=== PATIENT | female | born 1950 | race Caucasian/White ===

== ENCOUNTER 2024-11-13 16:24 | Emergency (ER) | payer MEDICARE, MEDICAID, SELFPAY ==
[2024-11-13] VITALS (19 sets, daily range): BP systolic 107–130; BP diastolic 42–98; PULSE 70–108; RESP 11–31; TEMP 36.6; O2SAT 97–100
--- NOTE | 2024-11-13 16:45 | RT.EKG_ITS ---
APPROVED REPORT Exam: Resting ECG Reason for Exam: weakness Patient Location: E HR:93 bpm ECG Measurements Heart Rate 93 AXIS AR 165 P 51 QRSd 88 QRS 24 QT 355 T 64 QTc 441 Conclusion Sinus rhythm at a rate of 93 without acute ischemic change
--- NOTE | 2024-11-13 17:09 | W.ED.GENAD ---
Discharge Plan Disposition Patient Disposition: Home Condition: Stable Discharge Details Clinical Impression: Hypokalemia Primary Care Provider: Unknown,Unknown ED Provider: Urszula Castellano Home Meds and New Rx's Prescriptions: New potassium chloride 20 mEq packet 20 meq PO DAILY Qty: 3 0RF No Action hydrocodone-acetaminophen 10-300 mg tablet 1 tab PO Q6H PRN multivitamin [Daily Multi-Vitamin] Tablet 1 tab PO DAILY cyanocobalamin (vitamin B-12) 1,000 mcg capsule 1,000 mcg PO DAILY calcium carbonate [Calcium 500] 500 mg calcium (1,250 mg) tablet,chewable 500 mg PO DAILY cholecalciferol (vitamin D3) 25 mcg (1,000 unit) tablet 1,000 unit PO DAILY pantoprazole 40 mg tablet,delayed release (DR/EC) 40 mg PO DAILY Discharge Instructions Instructions: Hypokalemia, High Potassium Diet Additional Instructions: Please follow-up with your primary care doctor. In the meantime if you do get worse or develop any new or concerning symptoms please return to the emergency department immediately for reevaluation. HPI General Date/Time Provider Initiated Documentation: 11/13/24 16:57. History of Present Illness 74 year old F presents to the emergency department with the chief complaint of Review of systems are negative except as mentioned., HPI Narrative: The patient is a 74-year-old female with a history of chronic low back pain on chronic narcotics who comes the emergency department for generalized weakness. Reports that she has been feeling weak over the past 2 weeks. Reports she feels weak all over but worse around her legs. Denies any new or worsening back pain. Denies any loss of urine or bowel control. Denies any numbness, tingling sensation that is different from her normal. Denies urinary symptoms. Denies any new or worsening cough. Denies any new or worsening chest pain or shortness of breath. Denies fevers or chills. Reports that she has an appetite and she wants to eat however she feels very full very quickly but this has been ongoing for the past few years. Reports she has not had any vomiting. Reports she has not had diarrhea. Denies any rashes or skin changes or any known insect bite. Reports that coincidentally during all this her landlord started putting up transfer rats but as far she is concerned she has not been bitten by one. Reports the last time she had something like this happen was when her electrolytes were low. She is wondering if this is what is happening again. Related Data Home Medications ?Medication ?Instructions ?Recorded ?Confirmed calcium carbonate (Calcium 500) 500 mg PO DAILY 11/13/24 11/13/24 cholecalciferol (vitamin D3) 25 1,000 unit PO DAILY 11/13/24 11/13/24 mcg (1,000 unit) tablet cyanocobalamin (vitamin B-12) 1,000 mcg PO DAILY 11/13/24 11/13/24 1,000 mcg capsule hydrocodone 10 mg-acetaminophen 1 tab PO Q6H PRN 11/13/24 11/13/24 300 mg tablet multivitamin (Daily Multi-Vitamin 1 tab PO DAILY 11/13/24 11/13/24 tablet) pantoprazole 40 mg tablet,delayed 40 mg PO DAILY 11/13/24 11/13/24 release potassium chloride 20 mEq oral 20 meq PO DAILY #3 ea 11/13/24 packet Previous Rx's ?Medication ?Instructions ?Recorded potassium chloride 20 mEq oral 20 meq PO DAILY #3 ea 11/13/24 packet Allergies Allergy/AdvReac Type Severity Reaction Status Date / Time omeprazole Allergy Severe Dizziness/L Verified 11/13/24 16:36 ighthead procaine (From Novocain) Allergy Severe Anaphylaxis Verified 11/13/24 16:36 morphine AdvReac Intermediate Psychosis Verified 11/13/24 16:36 General Stated Complaint: GenMedical VICTOR HUGO: 3 Exam Narrative Exam Narrative: General appearance: The patient is alert, has no immediate need for airway protection and no signs of toxicity. HEENT: Pupils are round, equal and reactive. Oral mucosal membranes are moist. Neck: No midline C-spine tenderness is noted to palpation. Respiratory: There are no retractions. Patient has coarse lung sounds bilaterally. Cardiovascular: Regular in rate and rhythm. Radial pulses are intact and equal. Gastrointestinal: The abdomen is soft and nondistended with normal bowel sounds. The patient has suprapubic tenderness to palpation without rebound tenderness, guarding or rigidity. Neurological: The patient is alert, awake and oriented x 3. Musculoskeletal strength is intact and equal to bilateral upper and lower extremities. Sensation is intact and equal to bilateral upper and lower extremities. Speech is clear. No facial asymmetry is appreciated. Cranial nerves II to XII motor function are intact and equal. No pronator drift noted. NIH stroke scale score is 0 at 1700. No truncal ataxia is noted. HINTS testing is within normal limits. Skin: Warm and dry. Back: The patient has midline lumbar spine tenderness on exam which again she reports is baseline and unchanged for her. She has paraspinal tenderness also which she also reports is baseline for her. Extremities: No lower extremity edema or calf tenderness is noted to palpation bilaterally. The patient has equal dorsalis pedis pulses. Motor function to lower extremities are normal and symmetric bilaterally. Patient has normal sensation to all dermatomes to bilateral lower extremities. Patient has negative straight leg raise to 70 degrees bilaterally. The patient has intact and equal strength to bilateral thigh abduction, knee extension, ankle dorsiflexion, toes pointing up, knee flexion, toe plantarflexion. Course Vital Signs Vital signs: Vital Signs Temperature 36.6 C 11/13/24 16:27 Pulse 108 H 11/13/24 16:27 Respiratory Rate 18 11/13/24 16:27 Blood Pressure 130/80 11/13/24 16:27 Pulse Oximetry 98 11/13/24 16:27 Temperature 36.6 C 11/13/24 16:27 Pulse 108 H 11/13/24 16:27 Respiratory Rate 18 11/13/24 16:27 Blood Pressure 130/80 11/13/24 16:27 Pulse Oximetry 98 11/13/24 16:27 Oxygen Delivery Method Room Air 11/13/24 16:27 Oxygen Flow Rate 0 11/13/24 16:27 Pain Level 0 11/13/24 16:27 Medical Decision Making I told the patient of plan for blood work, urinalysis and EKG. She has no focal deficit on exam which is reassuring. The patient's blood work is back. She is anemic but not critically anemic. Her chemistries are resulted and I found her potassium to be low. Renal function is benign and magnesium is within normal limits. I told the patient of plan for oral dose of potassium now and IV dose as well. The patient declined IV potassium. Since she has no EKG changes I am not insisting upon it. Urinalysis is resulted and this is negative for infectious process. After receiving oral potassium the patient reports she feels back to baseline and ready to go home. She will therefore be discharged shortly. I sent a prescription for more potassium for the next few days to her preferred pharmacy. She is encouraged to increase potassium intake at home and to follow-up with her primary care doctor as well however I told her in the meantime if she does get worse or develop any new or concerning symptoms to return to the emergency department for reevaluation. ECG Data Attestation: I personally reviewed and interpreted this ECG (s) as follows: (Sinus rhythm at a rate of 93 without acute ischemic change) PFSH All Active Problems (Updated 11/13/24 @ 19:16 by Urszula Castellano DO) Hypokalemia (Acute) Social History Smoking/Tobacco Use Status: Current every day Tobacco Type: cigarettes Smoking risk assessment performed?: Yes Alcohol Intake: current Alcohol Intake frequency: 3 or more drinks per day Drug use: Daily Substance use type: marijuana Housing: apartment Do you feel safe at home: Yes Do you feel safe in your relationship?: Yes
[2024-11-13 17:56] LABS: Abs Immature Grans 0.05 10^3/uL (0.0-0.06); Absolute Basophil Count 0.05 10^3/uL (0.0-0.2); Absolute Eosinophil Count 0.19 10^3/uL (0.0-0.7); Absolute Lymphocyte Count 0.99 10^3/uL (1.2-3.4); Absolute Monocyte Count 0.73 10^3/uL (0.1-0.8); Absolute Neutrophil Count 5.64 10^3/uL (1.2-6.7); Basophils % 0.7 %; Eosinophils % 2.5 %; HCT 33.4 % (36.0-46.0); HGB 10.7 g/dL (11.2-15.7); Immature Grans % 0.7 %; Lymphocytes % 12.9 %; MCH 29.6 pg (27.0-33.0); MCV 92 fL (80-95); MPV 9.3 fL (8.0-11.0); Monocytes % 9.5 %; Neutrophils % 73.7 %; Platelet Count 295 10^3/uL (130-400); RBC 3.62 10^6/uL (3.93-5.22); RDW 14.1 % (11.7-14.6); RDW-SD 48.5 fL; WBC 7.65 10^3/uL (4.4-10.8)
[2024-11-13 18:08] LABS: INR 0.9 (0.9-1.1); Prothrombin Time 9.3 sec (9.1-11.1)
[2024-11-13 18:14] LABS: ALT 10 U/L (14-59); AST 8 U/L (15-37); Albumin 3.1 g/dL (3.4-5.0); Alkaline Phosphatase 100 U/L (46-116); Anion Gap 14.1 mmol/L (3-11); BUN 22 mg/dL (7-18); Bilirubin, Total 0.3 mg/dL (0.2-1.0); CO2 18.9 mmol/L (21.0-32.0); Calcium 8.7 mg/dL (8.5-10.1); Chloride 106 mmol/L (98-107); Estimated GFR 58.39 (mL/min/1.73m2); Glucose 105 mg/dL (74-106); Magnesium 2.2 mg/dL (1.8-2.4); Sodium 139 mmol/L (136-145); Total Protein 6.7 g/dL (6.4-8.2)
[2024-11-13 18:23] LABS: Potassium 2.9 mmol/L (3.5-5.1)
[2024-11-13 18:36] LABS: Bilirubin Negative (Negative); Blood Negative (Negative); Clarity Clear (Clear); Glucose Negative (Negative); Ketones Negative (Negative); Leukocyte Esterase Negative (Negative); Nitrite Negative (Negative); Specific Gravity 1.025 (1.005-1.025); Urobilinogen 0.2 mg/dL (Up to 0.2)
[2024-11-13] MEDS: Potassium Chloride 20 MEQ TABCR 40 MEQ PO (18:44)
[2024-11-13 19:02] LABS: Bacteria Rare HPF (Negative); C & S Indicated? No/Sq. Contamination; Casts 0-2 Hyaline LPF (Negative); Crystals Negative HPF (Negative); Epithelial Cells Many HPF (Negative); Mucus Negative (Negative); Other Cells Few Renal (Negative); RBC 0-2 HPF (0-2)
== END 2024-11-13 19:26 | disposition home or self-care (01) ==
PROVIDERS: Emergency Provider Emergency Medicine
DX: E87.6 Hypokalemia (principal); F17.210 Nicotine dependence, cigarettes, uncomplicated
CPT/HCPCS: 80053; 93005; 99284; 81003; 81015; 83735; 85025; 85610; 93010; 99283

== ENCOUNTER 2024-12-10 19:12 | Inpatient (IN) | payer MEDICARE, MEDICAID, SELFPAY ==
[2024-12-10] VITALS (41 sets, daily range): BP systolic 90–123; BP diastolic 30–64; PULSE 78–108; RESP 14–27; TEMP 36.7; O2SAT 76–100
--- NOTE | 2024-12-10 19:45 | RT.EKG_ITS ---
APPROVED REPORT Exam: Resting ECG Reason for Exam: weakness Patient Location: E HR:88 bpm ECG Measurements Heart Rate 88 AXIS WA 131 P -69 QRSd 107 QRS 29 QT 347 T 62 QTc 421 Conclusion Sinus rhythm, rate 88 No interval abnormalities No STEMI Artifact No significant changes from priors
[2024-12-10 20:08] LABS: Glucose Negative (Negative)
--- NOTE | 2024-12-10 20:20 | NUR.NOTE ---
Patient used bathroom prior to EKG which was why there was a delay in EKG being done.
[2024-12-10 20:21] LABS: C & S Indicated? No; WBC Negative HPF (0-5)
[2024-12-10] MEDS: Albuterol/Ipratropium 3 ML UPD VIAL UPD ×2 (20:47→22:09)
[2024-12-10] MEDS: Normal Saline 500 ML IV ×2 (20:47→22:57)
[2024-12-10] MEDS: ACETAMINOPHEN 500 MG/50 ML BAG 200 MG IVPB (20:48)
[2024-12-10 20:59] LABS: Abs Immature Grans 0.35 10^3/uL (0.0-0.06); HCT 25.3 % (36.0-46.0); HGB 8.5 g/dL (11.2-15.7); Immature Grans % 2.4 %; MCH 29.8 pg (27.0-33.0); MCHC 33.6 % (32.0-36.0); MCV 89 fL (80-95); MPV 9.1 fL (8.0-11.0); Platelet Count 445 10^3/uL (130-400); RBC 2.85 10^6/uL (3.93-5.22); RDW 15.1 % (11.7-14.6); RDW-SD 48.0 fL; WBC 14.69 10^3/uL (4.4-10.8)
--- NOTE | 2024-12-10 21:11 | W.ED.GENAD ---
Discharge Plan Discharge Details Chief Complaint: GenMedical Primary Care Provider: Unknown,Unknown ED Provider: Kina Trejo Home Meds and New Rx's Prescriptions: No Action hydrocodone-acetaminophen 10-300 mg tablet 1 tab PO Q6H PRN multivitamin [Daily Multi-Vitamin] Tablet 1 tab PO DAILY cyanocobalamin (vitamin B-12) 1,000 mcg capsule 1,000 mcg PO DAILY calcium carbonate [Calcium 500] 500 mg calcium (1,250 mg) tablet,chewable 500 mg PO DAILY cholecalciferol (vitamin D3) 25 mcg (1,000 unit) tablet 1,000 unit PO DAILY pantoprazole 40 mg tablet,delayed release (DR/EC) 40 mg PO DAILY potassium chloride 20 mEq packet 20 meq PO DAILY Qty: 3 0RF HPI General Date/Time Provider Initiated Documentation: 12/10/24 19:35. HPI Narrative: 74-year-old female with chronic pain, hypokalemia, and GERD, presenting with increased shortness of breath, slurred speech, and weakness for a week. Feels like she has pneumonia but denies fever. Alert, oriented, no acute distress, clear speech. Denies falls or injuries. Smokes daily. Related Data Home Medications ?Medication ?Instructions ?Recorded ?Confirmed calcium carbonate (Calcium 500) 500 mg PO DAILY 11/13/24 12/10/24 cholecalciferol (vitamin D3) 25 1,000 unit PO DAILY 11/13/24 12/10/24 mcg (1,000 unit) tablet cyanocobalamin (vitamin B-12) 1,000 mcg PO DAILY 11/13/24 12/10/24 1,000 mcg capsule hydrocodone 10 mg-acetaminophen 1 tab PO Q6H PRN 11/13/24 12/10/24 300 mg tablet multivitamin (Daily Multi-Vitamin 1 tab PO DAILY 11/13/24 12/10/24 tablet) pantoprazole 40 mg tablet,delayed 40 mg PO DAILY 11/13/24 12/10/24 release potassium chloride 20 mEq oral 20 meq PO DAILY #3 ea 11/13/24 12/10/24 packet Previous Rx's ?Medication ?Instructions ?Recorded potassium chloride 20 mEq oral 20 meq PO DAILY #3 ea 11/13/24 packet Allergies Allergy/AdvReac Type Severity Reaction Status Date / Time omeprazole Allergy Severe Dizziness/L Verified 12/10/24 19:21 ighthead procaine (From Novocain) Allergy Severe Anaphylaxis Verified 12/10/24 19:21 morphine AdvReac Intermediate Psychosis Verified 12/10/24 19:21 General Stated Complaint: GenMedical VICTOR HUGO: 3 Exam Narrative Exam Narrative: General Appearance: Answers questions appropriately, follows commands. Vital signs: Within normal limits. HEENT: Oropharynx patent, uvula midline, edentulous. Respiratory: Crackles in right lung, wheezes in left lung. Gastrointestinal: No abdominal tenderness. Extremities: Strength equal and symmetrical in upper extremities. Plantar flexion and dorsiflexion intact in lower extremities. Skin: Warm and dry, no rash. Neurological: Normal. Course Vital Signs Vital signs: Vital Signs Temperature 36.7 C 12/10/24 19:14 Pulse 103 H 12/10/24 19:14 Respiratory Rate 16 12/10/24 19:14 Blood Pressure 103/58 L 12/10/24 19:14 Pulse Oximetry 97 12/10/24 19:14 Temperature 36.7 C 12/10/24 19:21 Temperature Source Oral 12/10/24 19:14 Pulse 89 12/10/24 21:01 Pulse 86 12/10/24 21:01 Respiratory Rate 23 12/10/24 21:01 Blood Pressure 90/64 L 12/10/24 21:00 Blood Pressure Mean 68 12/10/24 21:00 Blood Pressure Position Sitting 12/10/24 19:14 Pulse Oximetry 96 12/10/24 21:01 Oxygen Delivery Method Room Air 12/10/24 19:14 Oxygen Flow Rate 0 12/10/24 19:14 Lab/Test Results Lab/Test Results: 12/10/24 19:48 Blood Blood Culture - Pending 12/10/24 19:48 Blood Blood Culture - Pending Laboratory Tests Range/Units 12/10/24 12/10/24 12/10/24 19:58 20:35 20:53 WBC (4.4-10.8) 10^3/uL 14.69 H RBC (3.93-5.22) 10^6/uL 2.85 L Hgb (11.2-15.7) g/dL 8.5 L Hct (36.0-46.0) % 25.3 L MCV (80-95) fL 89 MCH (27.0-33.0) pg 29.8 MCHC (32.0-36.0) % 33.6 RDW (11.7-14.6) % 15.1 H Plt Count (130-400) 10^3/uL 445 H MPV (8.0-11.0) fL 9.1 Immature Gran % % 2.4 Neutrophils % % 83.1 Lymphocytes % % 7.4 Monocytes % % 6.3 Eosinophils % % 0.4 Basophils % % 0.4 Nucleated RBC % (0.0-0.3) % 0.0 Absolute Neutrophils (1.2-6.7) 10^3/uL 12.21 H Absolute Lymphocytes (1.2-3.4) 10^3/uL 1.09 L Absolute Monocytes (0.1-0.8) 10^3/uL 0.93 H Absolute Eosinophils (0.0-0.7) 10^3/uL 0.06 Absolute Basophils (0.0-0.2) 10^3/uL 0.06 VBG Lactate (<or=2.0) mmol/L 1.1 Urine Color (Yellow) Yellow Urine Clarity (Clear) Clear Urine pH (5-8) 6.0 Ur Specific [place] (1.005-1.025) 1.020 Urine Protein (Neg-Trace) mg/dL 100 H Urine Ketones (Negative) mg/dL Trace H Urine Blood (Negative) Small H Urine Nitrite (Negative) Negative Urine Bilirubin (Negative) Small H Urine Urobilinogen (Up to 0.2) mg/dL 0.2 Ur Leukocyte Esterase (Negative) Negative Urine RBC (0-2) HPF 3-5 H Urine WBC (0-5) HPF Negative Ur Epithelial Cells (Negative) HPF Moderate Urine Crystals (Negative) HPF Negative Urine Bacteria (Negative) HPF Rare Urine Casts (Negative) LPF Negative Urine Mucus (Negative) Negative Ur Culture Indicated? No Urine Glucose (Negative) mg/dL Negative Medical Decision Making Laboratory Studies Influenza, COVID-19, and RSV tests are negative. Hypokalemia potassium 2.2 gap of 14.6 BUN of 39 hemoglobin of 8.5 hematocrit of 27 leukocytosis of 14,000 neutrophil count of 14% urinalysis does not show significant acute abnormality. CT shows evidence [place] shows dilated common bile duct no tenderness in the right upper quadrant s/p cholecystectomy tree-in-bud appearance to bilateral lungs consistent with infectious process consistent with exam Critical care time 45 minutes of critical care time secondary to sepsis, pneumonia, acute hypoxic respiratory failure requiring oxygen set supplementation 1 L, IV fluids secondary to acute dehydration, IV potassium 20 mEq and p.o. potassium 40 mill equivalents , DuoNeb administration x 2 Solu-Medrol administration, diagnostic interpretation and review diagnostic, IV antibiotics Initial Assessment: 74-year-old female with chronic pain, hypokalemia, GERD, presenting with shortness of breath, slurred speech, and weakness for a week. Denies falls, injuries, fever. Smokes daily. Alert, oriented, no acute distress. Differential Diagnosis: - Pneumonia: Crackles in right lung, wheezes in left lung. Chest x-ray and blood work performed. Given Decadron, Motrin, Tylenol. - UTI: Low suspicion. Unable to supply urine. Tolerating p.o. fluids. One wet diaper. ED Course: - Chest x-ray - Blood work - Lactate and blood cultures - Flu, COVID, RSV tests negative - Decadron, Motrin, Tylenol administered- -IV antibiotics ceftriaxone and doxycycline for suspected pneumonia - Port score of 106 10% risk of mortality recommendation for hospital-based admission especially given hypokalemia and dehydration, and pneumonia Case discussed with hospitalist agreeable to admission at this time Final Assessment: Shortness of breath, slurred speech, weakness. Chest x-ray and blood work performed. Flu, COVID, RSV tests negative. Given Decadron, Motrin, Tylenol. Continue interventions at home. Clinical Impression: - Pneumonia - Hypokalemia - GERD - Chronic pain Disposition: - Discharge: Home. Stable vitals. Return precautions for worsening complaints. - Follow-Up: Recheck with PCP on Thursday. Patient Education: Continue Decadron, Motrin, Tylenol at home. [facility] All Active Problems (Updated 11/13/24 @ 19:16 by Urszula Castellano DO) Hypokalemia (Acute) Social History Smoking/Tobacco Use Status: Current every day Tobacco Type: cigarettes Smoking risk assessment performed?: Yes Alcohol Intake: current Alcohol Intake frequency: 3 or more drinks per day Drug use: Daily Substance use type: marijuana Housing: apartment Do you feel safe at home: Yes Do you feel safe in your relationship?: Yes
[2024-12-10 21:21] LABS: ALT 10 U/L (14-59); AST 12 U/L (15-37); Albumin 2.4 g/dL (3.4-5.0); Alkaline Phosphatase 93 U/L (46-116); Anion Gap 14.6 mmol/L (3-11); BUN 39 mg/dL (7-18); Bilirubin, Total 0.3 mg/dL (0.2-1.0); CO2 20.4 mmol/L (21.0-32.0); Calcium 8.2 mg/dL (8.5-10.1); Chloride 100 mmol/L (98-107); Estimated GFR 58.39 (mL/min/1.73m2); Glucose 113 mg/dL (74-106); Magnesium 2.1 mg/dL (1.8-2.4); Sodium 135 mmol/L (136-145); Total Protein 6.2 g/dL (6.4-8.2)
[2024-12-10 21:23] LABS: Troponin I 12 ng/L (<or=51)
[2024-12-10 21:27] LABS: Potassium 2.2 mmol/L (3.5-5.1)
--- NOTE | 2024-12-10 21:30 | DI.CT_ITS ---
Exam(s) CT CHEST/ABD/PEL W EXAM: CT CHEST/ABD/PEL W CLINICAL HISTORY: generalized pain anemia, hypoxia. TECHNIQUE: Imaging Protocol: Axial computed tomography images with coronal and sagittal reformatted images were created and reviewed. Computer aided detection (CAD) was utilized. CONTRAST MATERIAL: Intravenous: Omnipaque 350 Contrast volume:75 ml Oral: no COMPARISON: No exams were available for comparison FINDINGS: CHEST: Pulmonary parenchyma: Bilateral tree-in-bud opacities in both upper and lower lobes. Focal consolidation versus atelectasis noted in the medial left upper lobe. 5 millimeter right upper lobe nodule.. No dominant measurable mass. Tracheobronchial tree: No bronchiectasis. No mucous plugging.No bronchial wall thickening. Pleura: No effusion or pneumothorax. Mediastinum: Mildly enlarged mediastinal lymph nodes. Pulmonary arteries: Prominent pulmonary emboli. Main pulmonary artery measures 3.8 cm. No visible emboli. Cardiovascular: Normal heart size. Moderate coronary artery calcifications. No pericardial effusion. Descending aorta measures 3.4 cm. Ascending aorta is not dilated.. Severe atherosclerotic changes of the descending aorta Bones: Unremarkable for age. No lytic or blastic lesions. No compression fractures. Soft tissues: Unremarkable. ABDOMEN and PELVIS: Liver: Normal density. No suspicious mass. Gallbladder and biliary tract: Cholecystectomy. Intra and extrahepatic biliary dilatation. Common bile duct measures 14 millimeters. No visible stone. Pancreas: Atrophic. Calcifications consistent with prior episodes of pancreatitis. Dilatation of the pancreatic duct to 7 millimeters. Spleen: Normal. Kidneys: Normal size, contour and axis. No radiodense stones. No obstructive uropathy. Innumerable bilateral cysts. No suspicious masses seen. Adrenal glands: No masses seen. Aorta: Abdominal portion non-dilated. Severe atherosclerotic changes. Lymph nodes: Within normal limits. Soft tissues: Unremarkable. Bladder: Unremarkable. Bowel: Gastric bypass surgery. Partial colectomy with resection of the majority of the colon. There is a large quantity of stool in the rectum. No obstruction or bowel wall thickening. Peritoneal cavity: No ascites. No focal collection. No mesenteric inflammatory response. No free air. Bones: Unremarkable for age. Reproductive organs: Unremarkable for age. IMPRESSION: Bilateral diffuse tree-in-bud opacities in both lungs consistent with infectious or inflammatory process. Mildly enlarged mediastinal lymph nodes, likely reactive. Atrophic pancreas with evidence of chronic pancreatitis. There air ductal dilatation status post cholecystectomy. The findings may be longstanding. No obstructing stone or mass is identified. The preliminary [facility] report was reviewed. RADIATION DOSE DELIVERED: Total DLP DATA REPOSITORY: All CT scans at this facility are submitted to the National Radiology Data Registry (NRDR) Dose Index Registry (DIR) with the [employer] ([employer]). RADIATION OPTIMIZATION: All CT scans at this facility use at least one of these dose optimization techniques: automated exposure control; mA and/or kV adjustment per patient size (includes targeted exams where dose is matched to clinical indication); or iterative reconstruction.
[2024-12-10] MEDS: Omnipaque 350 MG/ML 100 ML BTL IJ (21:41)
[2024-12-10] MEDS: Normal Saline - Diluent 50 ML VIAL IJ (21:42)
[2024-12-10 21:51] LABS: Creatine Kinase 23 U/L (26-192)
[2024-12-10 21:57] LABS: INR 0.9 (0.9-1.1); Prothrombin Time 9.2 sec (9.1-11.1)
[2024-12-10] MEDS: cefTRIAXone 2 GM/50 ML BAG IVPB (22:00)
[2024-12-10] MEDS: methylPREDNISolone SUCC 125 MG VIAL IVP (22:00)
[2024-12-10] MEDS: Potassium Chloride 20 MEQ TABCR 40 MEQ PO (22:09)
[2024-12-10 22:25] LABS: COVID-19 PCR Negative (Negative); RSV PCR Negative (Negative)
[2024-12-10] MEDS: POTASSIUM CHLORIDE 20 MEQ/100 ML BAG 50 MEQ IV_INF (22:29)
--- NOTE | 2024-12-10 22:37 | DI.[facility]_ITS ---
PROCEDURE INFORMATION: Exam: CT Chest With Contrast; Diagnostic Exam date and time: 12/10/2024 9:34 PM Age: 74 years old Clinical indication: Generalized pain, anemia, hypoxia TECHNIQUE: Imaging protocol: Diagnostic computed tomography of the chest with contrast. 3D rendering (Not supervised by radiologist): MIP and/or 3D reconstructed images were created by the technologist. COMPARISON: No relevant prior studies available. FINDINGS: Thyroid: The thyroid demonstrates normal size. Lungs: Innumerable tree-in-bud pulmonary radiopacities are visualized throughout both lungs, most confluence within the right lateral lung base. Consolidation or atelectasis is present within the anterior medial left upper lobe. A 4 mm pulmonary nodule is present within the right upper lobe. Pleural spaces: No pleural effusion or pneumothorax. Heart: Heart is normal size. No pericardial effusion. Coronary arteries: There are moderate atheromatous coronary artery calcifications. Lymph nodes: Multiple shotty mediastinal lymph nodes are noted, 1 of which measures 1.2 cm in diameter. No axillary or supraclavicular adenopathy. Vasculature: Atheromatous calcifications are present within the visualized thoracic aorta. Bones/joints: Unremarkable. No acute fracture. Soft tissues: Unremarkable. IMPRESSION: Diffuse tree-in-bud pulmonary radiopacities throughout both lungs most confluence at the right lung base. Findings suggest endobronchial spread of infection. Follow-up to resolution recommended. PROCEDURE INFORMATION: Exam: CT Abdomen And Pelvis With Contrast Exam date and time: 12/10/2024 9:34 PM Age: 74 years old Clinical indication: Generalized pain, anemia, hypoxia TECHNIQUE: Imaging protocol: Computed tomography of the abdomen and pelvis with contrast. 3D rendering (Not supervised by radiologist): MIP and/or 3D reconstructed images were created by the technologist. COMPARISON: No relevant prior studies available. FINDINGS: Liver: The liver has a normal appearance. Gallbladder and biliary ducts: The gallbladder is surgically absent. There is moderate intrahepatic biliary ductal dilatation. The common bile duct measures up to 1.4 cm in diameter near the ampulla. No intraductal stone or mass visualized. Pancreas: The pancreas is atrophic. Punctate calcifications are present throughout the atrophic pancreas suggesting prior pancreatitis. The main duct is dilated up to 7 mm in diameter in the body of the pancreas. Spleen: The spleen demonstrates normal size. Adrenal glands: The adrenal glands have a normal appearance. Kidneys and ureters: The kidneys demonstrate overall symmetric size and enhancement. There are innumerable hypodense exophytic cystic lesions throughout the kidneys. A nonobstructing 1 mm calculus is present at the upper pole of the left kidney. No hydroureter, ureterolithiasis, or hydronephrosis. Stomach and bowel: Patient is status post gastric bypass. The bowel demonstrates overall normal caliber and wall thickness. Patient is status post partial colectomy. Appendix: No evidence of appendicitis. Intraperitoneal space: Unremarkable. No free air. No significant fluid collection. Vasculature: There are dense atheromatous calcifications throughout the aorta and iliac arteries. Lymph nodes: No enlarged lymph nodes. Urinary bladder: Unremarkable as visualized. Reproductive: Unremarkable as visualized. Bones/joints: Bones have a normal appearance. No acute fracture or suspicious bone lesion. Soft tissues: Unremarkable. IMPRESSION: 1. Intra and extrahepatic biliary ductal dilatation, the acuity of which is unknown without prior studies. This may be longstanding process given the sequela of prior pancreatitis and pancreatic ductal dilatation and pancreatic calcification. If further characterization is warranted, ERCP could be used. 2. No acute intra-abdominal findings. 3. Innumerable bilateral renal cystic lesions suggesting polycystic renal disease. Dictated and Authenticated by: Andria Sheehan MD. Orderin Neil Castanon MD
[2024-12-10 23:03] LABS: Abs Immature Grans 0.35 10^3/uL (0.0-0.06); HCT 25.2 % (36.0-46.0); HGB 8.2 g/dL (11.2-15.7); Immature Grans % 2.1 %; MCH 30.1 pg (27.0-33.0); MCHC 32.5 % (32.0-36.0); MPV 9.1 fL (8.0-11.0); Platelet Count 372 10^3/uL (130-400); RBC 2.72 10^6/uL (3.93-5.22); RDW 15.3 % (11.7-14.6); RDW-SD 50.4 fL; WBC 16.67 10^3/uL (4.4-10.8)
[2024-12-10 23:06] LABS: MCV 93 fL (80-95)
[2024-12-10] MEDS: DOXYCYCLINE 100 MG in Normal Saline 100 ML IVPB (23:41)
[2024-12-11] VITALS (101 sets, daily range): BP systolic 78–109; BP diastolic 30–61; PULSE 77–118; RESP 9–28; TEMP 35.7–37.4; O2SAT 84–100
--- NOTE | 2024-12-11 00:14 | W.PM.HP.N ---
Date of service: 12/11/24 Time of Service: 00:14 Assessment and Plan Assessment and plan (1) Pneumonia: Status: Acute Assessment and plan: Patient does have an elevated white count as well as a left shift. Will continue with antibiotics started in the ED which are Rocephin and Zithromax. Considering the patient's radiographic findings we will order a TB test although the yield would be really low. Patient denies any hemoptysis or any foreign travel. CT result IMPRESSION: Diffuse tree-in-bud pulmonary radiopacities throughout both lungs most confluence at the right lung base. Findings suggest endobronchial spread of infection. Follow-up to resolution recommended. (2) Hypokalemia: Status: Acute Assessment and plan: Exact etiology is unknown will continue with IV as well as oral replacement. Patient's magnesium levels within normal limits. Will continue with inhalers although this can lower her potassium. My concern is she does have an occult COPD and would benefit from inhaled therapy. (3) Hematuria: Status: Acute Assessment and plan: This is a new finding from October. Considering her symptomology including her weight loss and fatigue. Would strongly recommend a thorough workup for occult malignancies. I have sent tumor markers but remain concerned about bladder issues considering her smoking history as well as an ovarian issue as this could have a very indolent course. (4) Elevated BUN: Status: Acute Assessment and plan: Patient does have an elevated BUN to creatinine ratio which is usually indicative of anemia or GI bleed. Will check Hemoccult x 3 and continue with IV fluids. (5) Anemia: Status: Chronic Assessment and plan: As mentioned above. Consider iron TIBC B12 and folate deficiency checks in the a.m. (6) Tobacco abuse: Status: Acute Assessment and plan: Recommend completing total cessation. I have added NicoDerm as needed. Will consider a pulmonary function test in the outpatient setting (7) COPD (chronic obstructive pulmonary disease): Status: Chronic Assessment and plan: This is not a formal diagnosis but considering her history of tobacco use would err on the side of caution. Starting her on inhalers monitoring for improvement. (8) Weight loss, non-intentional: Status: Acute Assessment and plan: Consulted nutrition has been placed. Patient will be on Lovenox for DVT prophylaxis. Considering the fact that there is concern for occult malignancy believe this is the best course at this point. History of Present Illness History of Present Illness Chief Complaint: weakness Narrative: This is a 74-year-old female who presents to the ED today because of worsening weakness over the last 2 weeks. Patient was seen and October 2024 for the same issue was diagnosed with hypokalemia. Patient refused IV potassium at that time and was discharged with oral potassium. At that time she was complaining of weakness as well. In reviewing her chart she has had a 5 kg weight loss in less than a month. In looking at her intake documents she did complain of slurred speech but denies this on my interview. The patient does have a history of colon cancer which was treated surgically as well as breast cancer that was treated surgically. The patient denies any B symptoms of malignancy. Patient states that she smokes approximately 1 to 2 packs of cigarettes a week. Denies any alcohol use. While she was in the ED her diagnostic test included CT of her chest as well as laboratory work. Blood cultures were drawn while she was in the ED. Her CT scan was indicative of multiple tree-in-bud radiopacities. As well as a 4 mm pulmonary nodule. Patient was also noted to have some hematuria. Her laboratory work was significant for significant hypokalemia 2.2 as well as a BUN and creatinine of 39/1.0. Patient was also dropped 2 g and her hemoglobin and is currently at 8.2. Review of Systems All systems reviewed & are unremarkable except as noted in HPI and below PFSH All Active Problems (Updated 12/11/24 @ 00:26 by Nahid Camacho MD) Weight loss, non-intentional (Acute) COPD (chronic obstructive pulmonary disease) (Chronic) Tobacco abuse (Acute) Anemia (Chronic) Elevated BUN (Acute) Hematuria (Acute) Hypokalemia (Acute) Respiratory failure (Acute) Pneumonia (Acute) Hypokalemia (Acute) Social History Smoking/Tobacco Use Status: Current every day Tobacco Type: cigarettes Smoking risk assessment performed?: Yes Alcohol Intake: current Alcohol Intake frequency: 3 or more drinks per day Drug use: Daily Substance use type: marijuana Housing: apartment Do you feel safe at home: Yes Do you feel safe in your relationship?: Yes Meds Allergies and Home Medications Allergies Allergy/AdvReac Type Severity Reaction Status Date / Time omeprazole Allergy Severe Dizziness/L Verified 12/10/24 19:21 ighthead procaine (From Novocain) Allergy Severe Anaphylaxis Verified 12/10/24 19:21 morphine AdvReac Intermediate Psychosis Verified 12/10/24 19:21 Home Medications ?Medication ?Instructions ?Recorded ?Confirmed ?Type calcium carbonate (Calcium 500) 500 mg PO DAILY 11/13/24 12/10/24 History cholecalciferol (vitamin D3) 25 1,000 unit PO DAILY 11/13/24 12/10/24 History mcg (1,000 unit) tablet cyanocobalamin (vitamin B-12) 1,000 mcg PO DAILY 11/13/24 12/10/24 History 1,000 mcg capsule hydrocodone 10 mg-acetaminophen 1 tab PO Q6H PRN 11/13/24 12/10/24 History 300 mg tablet multivitamin (Daily Multi-Vitamin 1 tab PO DAILY 11/13/24 12/10/24 History tablet) pantoprazole 40 mg tablet,delayed 40 mg PO DAILY 11/13/24 12/10/24 History release potassium chloride 20 mEq oral 20 meq PO DAILY #3 ea 11/13/24 12/10/24 Rx packet Exam Narrative Exam Narrative: This is a 74-year-old female who appears older than her stated age. HEENT-normocephalic atraumatic mucous membranes moist oropharynx is clear Neck-no lymphadenopathy no JVD no thyromegaly Cardiovascular-no murmur rubs gallops regular rate and rhythm Pulm-bilateral wheeze but no accessory muscle use Abdomen-scaphoid Extremities-no cyanosis clubbing or edema Neurologic-cranial nerves II through XII intact as tested reflexes in upper lower extremity normal as tested Psych-alert and oriented x 3 no apparent distress Constitution-decreased muscle mass throughout Results Labs 12/10/24 22:59 12/10/24 20:35 Labs: Laboratory Results - last 24 hr 12/10/24 12/10/24 12/10/24 19:58 20:35 20:53 WBC 14.69 H RBC 2.85 L Hgb 8.5 L Hct 25.3 L MCV 89 MCH 29.8 MCHC 33.6 RDW 15.1 H Plt Count 445 H MPV 9.1 Immature Gran % 2.4 Neutrophils % 83.1 Lymphocytes % 7.4 Monocytes % 6.3 Eosinophils % 0.4 Basophils % 0.4 Nucleated RBC % 0.0 Absolute Neutrophils 12.21 H Absolute Lymphocytes 1.09 L Absolute Monocytes 0.93 H Absolute Eosinophils 0.06 Absolute Basophils 0.06 PT INR VBG Lactate 1.1 Sodium 135 L Potassium 2.2 L* Chloride 100 Carbon Dioxide 20.4 L Anion Gap 14.6 H BUN 39 H Creatinine 1.0 Est GFR (CKD-EPI 2020) 58.39 Glucose 113 H Calcium 8.2 L Magnesium 2.1 Total Bilirubin 0.3 AST 12 L ALT 10 L Alkaline Phosphatase 93 Creatine Kinase 23 L Troponin I 12 Total Protein 6.2 L Albumin 2.4 L Urine Color Yellow Urine Clarity Clear Urine pH 6.0 Ur Specific [place] 1.020 Urine Protein 100 H Urine Ketones Trace H Urine Blood Small H Urine Nitrite Negative Urine Bilirubin Small H Urine Urobilinogen 0.2 Ur Leukocyte Esterase Negative Urine RBC 3-5 H Urine WBC Negative Ur Epithelial Cells Moderate Urine Crystals Negative Urine Bacteria Rare Urine Casts Negative Urine Mucus Negative Ur Culture Indicated? No Urine Glucose Negative COVID-19 Source SARS-CoV-2 (PCR) Influenza Type A (PCR) Influenza Type B (PCR) RSV (PCR) 12/10/24 12/10/24 21:35 22:59 WBC 16.67 H RBC 2.72 L Hgb 8.2 L Hct 25.2 L MCV 93 D MCH 30.1 MCHC 32.5 RDW 15.3 H Plt Count 372 MPV 9.1 Immature Gran % 2.1 Neutrophils % 81.5 Lymphocytes % 9.0 Monocytes % 6.5 Eosinophils % 0.3 Basophils % 0.6 Nucleated RBC % 0.0 Absolute Neutrophils 13.59 H Absolute Lymphocytes 1.50 Absolute Monocytes 1.08 H Absolute Eosinophils 0.05 Absolute Basophils 0.10 PT 9.2 INR 0.9 VBG Lactate Sodium Potassium Chloride Carbon Dioxide Anion Gap BUN Creatinine Est GFR (CKD-EPI 2020) Glucose Calcium Magnesium Total Bilirubin AST ALT Alkaline Phosphatase Creatine Kinase Troponin I Total Protein Albumin Urine Color Urine Clarity Urine pH Ur Specific [place] Urine Protein Urine Ketones Urine Blood Urine Nitrite Urine Bilirubin Urine Urobilinogen Ur Leukocyte Esterase Urine RBC Urine WBC Ur Epithelial Cells Urine Crystals Urine Bacteria Urine Casts Urine Mucus Ur Culture Indicated? Urine Glucose COVID-19 Source Nasopharynx SARS-CoV-2 (PCR) Negative Influenza Type A (PCR) Negative Influenza Type B (PCR) Negative RSV (PCR) Negative Last Vital Signs Temp 36.7 C 12/10/24 19:21 Pulse 89 07/26/25 21:01 Resp 20 12/10/24 21:05 BP 90/64 L 12/10/24 21:00 Pulse Ox 96 12/10/24 21:01 Time Spent Time spent with Patient: 55-74 minutes Time was spent: preparing to see the patient(eg.review tests), obtaining and/or reviewing separately otained hiistory, ordering medications,tests, procedures, referring, communicating with other health care attendant, indepentently interpreting results, counseling the patient and care coordination
--- NOTE | 2024-12-11 00:27 | W.PC.ACHO ---
Registration Status: REG ER Primary Language: Preferred Language: ED Information & Data Chief Complaint GenMedical 12/10/24 21:11 Triage Note family states that patient 12/10/24 19:14 has not been feeling well, decreased appetite, weakness , SOB, slurred speech that has been ongoing for a few week since last admission when she was admitted for low potassium. Most Recent Vital Signs Temperature 36.7 C 12/10/24 19:21 Temperature Source Oral 12/10/24 19:14 Pulse 92 H 12/11/24 00:20 Pulse 92 H 12/11/24 00:20 Respiratory Rate 21 12/11/24 00:20 Respiratory Effort Non-Labored, Short of Breath 12/10/24 21:05 Respiratory Depth Normal 12/10/24 21:05 Respiratory Pattern Tachypnea 12/10/24 21:05 Blood Pressure 90/32 L 12/10/24 23:46 Blood Pressure Mean 53 12/10/24 23:46 Blood Pressure Position Sitting 12/10/24 19:14 Pulse Oximetry 97 12/11/24 00:20 Oxygen Delivery Method Room Air 12/10/24 19:14 Oxygen Flow Rate 0 12/10/24 19:14 Allergies omeprazole Allergy (Severe, Verified 12/10/24 19:21) Dizziness/Lighthead procaine (From Novocain) Allergy (Severe, Verified 12/10/24 19:21) Anaphylaxis morphine Adverse Reaction (Intermediate, Verified 12/10/24 19:21) Psychosis Precautions Isolation Standard precaution 12/10/24 19:21 Active Medications Generic Name Dose Route Start Last Admin Trade Name Freq PRN Reason Stop Dose Admin Iohexol 100 ml 12/10/24 21:45 12/10/24 21:41 Omnipaque 350 Mg/Ml 100 Ml Btl IJ 01/09/25 23:59 75 ml DIRECTED ANGELIQUE Administration Sodium Chloride 50 ml 12/10/24 21:45 12/10/24 21:42 Normal Saline - Diluent 50 Ml Vial IJ 50 ml .FOR DI USE ANGELIQUE Administration IV IV Catheter Type [Left Saline Lock Antecubital] IV Catheter Gauge [Left 20 Antecubital] Diet Orders Category Date Time Status Regular/Normal [DIET] Nutrition 12/11/24 Breakfast Active Diagnostics 12/11/24 12/11/24 12/11/24 Range/Units Unknown 05:35 00:11 WBC Pending (4.4-10.8) 10^3/uL RBC Pending (3.93-5.22) 10^6/uL Hgb Pending (11.2-15.7) g/dL Hct Pending (36.0-46.0) % MCV Pending (80-95) fL MCH Pending (27.0-33.0) pg MCHC Pending (32.0-36.0) % RDW Pending (11.7-14.6) % Plt Count Pending (130-400) 10^3/uL MPV Pending (8.0-11.0) fL Immature Gran % Pending % Neutrophils % Pending % Lymphocytes % Pending % Monocytes % Pending % Eosinophils % Pending % Basophils % Pending % Nucleated RBC % (0.0-0.3) % Absolute Neutrophils Pending (1.2-6.7) 10^3/uL Absolute Lymphocytes Pending (1.2-3.4) 10^3/uL Absolute Monocytes Pending (0.1-0.8) 10^3/uL Absolute Eosinophils Pending (0.0-0.7) 10^3/uL Absolute Basophils Pending (0.0-0.2) 10^3/uL PT (9.1-11.1) sec INR (0.9-1.1) VBG Lactate (<or=2.0) mmol/L Sodium Pending (136-145) mmol/L Potassium Pending (3.5-5.1) mmol/L Chloride Pending (98-107) mmol/L Carbon Dioxide Pending (21.0-32.0) mmol/L Anion Gap Pending (3-11) mmol/L BUN Pending (7-18) mg/dL Creatinine Pending (0.55-1.02) mg/dL Est GFR (CKD-EPI 2020) Pending (mL/min/1.73m2) Glucose Pending (74-106) mg/dL Calcium Pending (8.5-10.1) mg/dL Magnesium (1.8-2.4) mg/dL Total Bilirubin Pending (0.2-1.0) mg/dL AST Pending (15-37) U/L ALT Pending (14-59) U/L Alkaline Phosphatase Pending (46-116) U/L Creatine Kinase (26-192) U/L Troponin I (<or=51) ng/L Total Protein Pending (6.4-8.2) g/dL Albumin Pending (3.4-5.0) g/dL Carcinoembryonic Ag Pending CA 19-9 Antigen Pending CA 125 Antigen Pending TSH Pending Urine Color (Yellow) Urine Clarity (Clear) Urine pH (5-8) Ur Specific [place] (1.005-1.025) Urine Protein (Neg-Trace) mg/dL Urine Ketones (Negative) mg/dL Urine Blood (Negative) Urine Nitrite (Negative) Urine Bilirubin (Negative) Urine Urobilinogen (Up to 0.2) mg/dL Ur Leukocyte Esterase (Negative) Urine RBC (0-2) HPF Urine WBC (0-5) HPF Ur Epithelial Cells (Negative) HPF Urine Crystals (Negative) HPF Urine Bacteria (Negative) HPF Urine Casts (Negative) LPF Urine Mucus (Negative) Ur Culture Indicated? Urine Glucose (Negative) mg/dL COVID-19 Source SARS-CoV-2 (PCR) (Negative) Influenza Type A (PCR) (Negative) Influenza Type B (PCR) (Negative) RSV (PCR) (Negative) ABO/Rh Antibody Screen 12/10/24 12/10/24 12/10/24 Range/Units 22:59 22:26 21:35 WBC 16.67 H (4.4-10.8) 10^3/uL RBC 2.72 L (3.93-5.22) 10^6/uL Hgb 8.2 L (11.2-15.7) g/dL Hct 25.2 L (36.0-46.0) % MCV 93 D (80-95) fL MCH 30.1 (27.0-33.0) pg MCHC 32.5 (32.0-36.0) % RDW 15.3 H (11.7-14.6) % Plt Count 372 (130-400) 10^3/uL MPV 9.1 (8.0-11.0) fL Immature Gran % 2.1 % Neutrophils % 81.5 % Lymphocytes % 9.0 % Monocytes % 6.5 % Eosinophils % 0.3 % Basophils % 0.6 % Nucleated RBC % 0.0 (0.0-0.3) % Absolute Neutrophils 13.59 H (1.2-6.7) 10^3/uL Absolute Lymphocytes 1.50 (1.2-3.4) 10^3/uL Absolute Monocytes 1.08 H (0.1-0.8) 10^3/uL Absolute Eosinophils 0.05 (0.0-0.7) 10^3/uL Absolute Basophils 0.10 (0.0-0.2) 10^3/uL PT 9.2 (9.1-11.1) sec INR 0.9 (0.9-1.1) VBG Lactate (<or=2.0) mmol/L Sodium (136-145) mmol/L Potassium (3.5-5.1) mmol/L Chloride (98-107) mmol/L Carbon Dioxide (21.0-32.0) mmol/L Anion Gap (3-11) mmol/L BUN (7-18) mg/dL Creatinine (0.55-1.02) mg/dL Est GFR (CKD-EPI 2020) (mL/min/1.73m2) Glucose (74-106) mg/dL Calcium (8.5-10.1) mg/dL Magnesium (1.8-2.4) mg/dL Total Bilirubin (0.2-1.0) mg/dL AST (15-37) U/L ALT (14-59) U/L Alkaline Phosphatase (46-116) U/L Creatine Kinase (26-192) U/L Troponin I (<or=51) ng/L Total Protein (6.4-8.2) g/dL Albumin (3.4-5.0) g/dL Carcinoembryonic Ag CA 19-9 Antigen CA 125 Antigen TSH Urine Color (Yellow) Urine Clarity (Clear) Urine pH (5-8) Ur Specific [place] (1.005-1.025) Urine Protein (Neg-Trace) mg/dL Urine Ketones (Negative) mg/dL Urine Blood (Negative) Urine Nitrite (Negative) Urine Bilirubin (Negative) Urine Urobilinogen (Up to 0.2) mg/dL Ur Leukocyte Esterase (Negative) Urine RBC (0-2) HPF Urine WBC (0-5) HPF Ur Epithelial Cells (Negative) HPF Urine Crystals (Negative) HPF Urine Bacteria (Negative) HPF Urine Casts (Negative) LPF Urine Mucus (Negative) Ur Culture Indicated? Urine Glucose (Negative) mg/dL COVID-19 Source Nasopharynx SARS-CoV-2 (PCR) Negative (Negative) Influenza Type A (PCR) Negative (Negative) Influenza Type B (PCR) Negative (Negative) RSV (PCR) Negative (Negative) ABO/Rh Pending Antibody Screen Pending 12/10/24 12/10/24 12/10/24 Range/Units 20:53 20:35 19:58 WBC 14.69 H (4.4-10.8) 10^3/uL RBC 2.85 L (3.93-5.22) 10^6/uL Hgb 8.5 L (11.2-15.7) g/dL Hct 25.3 L (36.0-46.0) % MCV 89 (80-95) fL MCH 29.8 (27.0-33.0) pg MCHC 33.6 (32.0-36.0) % RDW 15.1 H (11.7-14.6) % Plt Count 445 H (130-400) 10^3/uL MPV 9.1 (8.0-11.0) fL Immature Gran % 2.4 % Neutrophils % 83.1 % Lymphocytes % 7.4 % Monocytes % 6.3 % Eosinophils % 0.4 % Basophils % 0.4 % Nucleated RBC % 0.0 (0.0-0.3) % Absolute Neutrophils 12.21 H (1.2-6.7) 10^3/uL Absolute Lymphocytes 1.09 L (1.2-3.4) 10^3/uL Absolute Monocytes 0.93 H (0.1-0.8) 10^3/uL Absolute Eosinophils 0.06 (0.0-0.7) 10^3/uL Absolute Basophils 0.06 (0.0-0.2) 10^3/uL PT (9.1-11.1) sec INR (0.9-1.1) VBG Lactate 1.1 (<or=2.0) mmol/L Sodium 135 L (136-145) mmol/L Potassium 2.2 L* (3.5-5.1) mmol/L Chloride 100 (98-107) mmol/L Carbon Dioxide 20.4 L (21.0-32.0) mmol/L Anion Gap 14.6 H (3-11) mmol/L BUN 39 H (7-18) mg/dL Creatinine 1.0 (0.55-1.02) mg/dL Est GFR (CKD-EPI 2020) 58.39 (mL/min/1.73m2) Glucose 113 H (74-106) mg/dL Calcium 8.2 L (8.5-10.1) mg/dL Magnesium 2.1 (1.8-2.4) mg/dL Total Bilirubin 0.3 (0.2-1.0) mg/dL AST 12 L (15-37) U/L ALT 10 L (14-59) U/L Alkaline Phosphatase 93 (46-116) U/L Creatine Kinase 23 L (26-192) U/L Troponin I 12 (<or=51) ng/L Total Protein 6.2 L (6.4-8.2) g/dL Albumin 2.4 L (3.4-5.0) g/dL Carcinoembryonic Ag CA 19-9 Antigen CA 125 Antigen TSH Urine Color Yellow (Yellow) Urine Clarity Clear (Clear) Urine pH 6.0 (5-8) Ur Specific [place] 1.020 (1.005-1.025) Urine Protein 100 H (Neg-Trace) mg/dL Urine Ketones Trace H (Negative) mg/dL Urine Blood Small H (Negative) Urine Nitrite Negative (Negative) Urine Bilirubin Small H (Negative) Urine Urobilinogen 0.2 (Up to 0.2) mg/dL Ur Leukocyte Esterase Negative (Negative) Urine RBC 3-5 H (0-2) HPF Urine WBC Negative (0-5) HPF Ur Epithelial Cells Moderate (Negative) HPF Urine Crystals Negative (Negative) HPF Urine Bacteria Rare (Negative) HPF Urine Casts Negative (Negative) LPF Urine Mucus Negative (Negative) Ur Culture Indicated? No Urine Glucose Negative (Negative) mg/dL COVID-19 Source SARS-CoV-2 (PCR) (Negative) Influenza Type A (PCR) (Negative) Influenza Type B (PCR) (Negative) RSV (PCR) (Negative) ABO/Rh Antibody Screen 12/10/24 21:25 Blood Culture - Pending Blood 12/10/24 21:35 Blood Culture - Pending Blood Intake and Output - 24 Hour Total 12/10/24 19:12 thru 12/10/24 22:54 Intake Total 550 Balance 550 Weight 47.627 kg Intake: IV 550 Falls Risk Assessment History of Falls No History 12/10/24 21:05 Contributing Factors No Factors 12/10/24 21:05 Tubes/Lines None 12/10/24 21:05 Gait Evaluation No gait disturbance 12/10/24 21:05 Cognition No cognitive impairment 12/10/24 21:05 Fall Total Score 0 12/10/24 21:05 Level of Risk Standard/Low Risk 12/10/24 21:05 Notes 12/10/24 20:20 Nursing Notes by Melva Quigley Patient used bathroom prior to EKG which was why there was a delay in EKG being done. Initialized on 12/10/24 20:20 - END OF NOTE v v v v v v v v v Sending and/or Receiving Nurses: Please use comment section below to note any information pertinent to the patient hand-off not included above. Information / Comments: Report received from:Kenan
[2024-12-11] MEDS: POTASSIUM CHLORIDE/0.45% NACL 1,000 ML 100 MEQ IV (01:16)
[2024-12-11] MEDS: Enoxaparin 40 MG/0.4 ML SYR SC (01:20)
[2024-12-11] MEDS: Albuterol/Ipratropium 3 ML UPD VIAL UPD ×4 (01:54→19:50)
--- NOTE | 2024-12-11 02:28 | NUR.NOTE ---
Received pt from ED around 12;50am per ED bed with the ED nurse. A&O3-4. With continuos IV of NS running at 250 ml/hr. With Left Ac iv gauge 20. With o2 NC to be hook reg @ 1LPM.Transferred pt from bed to bed.
[2024-12-11] MEDS: HYDROcodone 10/Acetaminophen 325 TAB PO (02:40)
[2024-12-11 06:33] LABS: Abs Immature Grans 0.37 10^3/uL (0.0-0.06); Immature Grans % 2.7 %; MCH 29.8 pg (27.0-33.0); MCHC 33.5 % (32.0-36.0); MCV 89 fL (80-95); MPV 9.4 fL (8.0-11.0); Platelet Count 395 10^3/uL (130-400); RBC 2.15 10^6/uL (3.93-5.22); RDW 15.0 % (11.7-14.6); RDW-SD 48.2 fL; WBC 13.90 10^3/uL (4.4-10.8)
[2024-12-11 06:38] LABS: HCT 19.1 % (36.0-46.0); HGB 6.4 g/dL (11.2-15.7)
[2024-12-11 07:01] LABS: ALT 9 U/L (14-59); AST 10 U/L (15-37); Albumin 1.9 g/dL (3.4-5.0); Alkaline Phosphatase 74 U/L (46-116); Anion Gap 15.5 mmol/L (3-11); BUN 41 mg/dL (7-18); Bilirubin, Total 0.2 mg/dL (0.2-1.0); CO2 17.5 mmol/L (21.0-32.0); Calcium 7.9 mg/dL (8.5-10.1); Chloride 103 mmol/L (98-107); Estimated GFR 66.26 (mL/min/1.73m2); Glucose 190 mg/dL (74-106); Hypochromasia 2+; Potassium 3.3 mmol/L (3.5-5.1); Sodium 136 mmol/L (136-145); TSH (W/Ref FT4) 0.45 uIU/mL (0.36-3.74); Total Protein 5.2 g/dL (6.4-8.2)
[2024-12-11 07:02] LABS: Poikilocytes 1+
[2024-12-11] MEDS: Pantoprazole 40 MG TABCR PO (08:11)
[2024-12-11] MEDS: Potassium Chloride 20 MEQ TABCR 40 MEQ PO (08:12)
[2024-12-11] MEDS: Cyanocobalamin 500 MCG TAB 1000 MCG PO (08:16)
[2024-12-11] MEDS: Cholecalciferol (Vitamin D3) 1,000 UNIT TAB 1000 UNITS PO (08:16)
[2024-12-11] MEDS: Calcium Carbonate *TUMS* 500 MG CHEW CH (08:17)
--- NOTE | 2024-12-11 08:20 | PDOC.CMIN ---
Date of service: 12/11/24 Time of Service: 08:21 Care Management Initial Assmt Initial Assessment Reason for Hospitalization: Pneumonia Functional Status/Living Situation Patient Presentation: Kira is clinically ill and required transfer from [place] to [place] after becoming hypotensive, as a result of GI bleed of unknown etiology. Per chart review, pt has a hx of colon cancer, previously treated surgically with a hemicolectomy. Surgical is consulted and further medical work up is being done. PT is on hold, pending new orders once medically appropriate. CM will follow. Town of Residence: [facility] Significant Other/Family: Local Natural Supports: Sister Tracee Rosado, Brother Star Radford Sons Alan and Zeyad Daughters Cierra and Healther Friends Nahid and Christina Instrumental Activities of Daily Living (ADLs): Independent Medications Medication Management: No Issues/Barriers identified Advance Directives Advance Directives: Do you have an Advance Directive: N 11/13/24, 18:18 AD On File at [facility]: N 11/13/24, 18:18 Date Asked 12/10/24 12/10/24, 19:15 AD Date Reviewed COLST On File at [facility] No 12/10/24, 19:15 COLST Date Scanned Code Status Resuscitation Status DNR/DNI Portal Pt does not currently have a portal and education provided: Yes Insurance Coverage/Financial Issues Insurance: Medicare Part A & B - [id number] Care Team Visit Care Team Role Provider Type Frederick Roth MD [facility] STAFF PHYSICIAN Unknown Unknown Primary Care Provider STAFF PHYSICIAN Ellen Ni RDN, [facility] Other Providers SPRINK[employer] FITTER APPRENTICE Jesus Gary Other Providers OTHER Judson Peter RDN Other Providers SPRINKLER FITTER APPRENTICE HELENA [facility] Emergency Provider [employer] Nahid Camacho MD Admit Provider [facility] STAFF PHYSICIAN Attending Provider Discharge Potential Discharge Needs: PCP F/U Appt Anticipated Barriers to Discharge: None Identified Patient/Family Education Needs: Review discharge instructions, discuss Ask Me Three Transportation: Private vehicle Plan: Kira transferred from [place] to the ICU and requires further medical work up. PT order will be needed, when medically appropriate. Anticipate, Kira will return home, with new services (if indicated) via private vehicle. Pt will follow up with primary care and discharge plan of care as directed. CM will follow. Social Determinants of Health Screening Will the Patient Participate in the Screening?: Unable to obtain PFSH All Active Problems (Updated 12/11/24 @ 11:14 by Frederick Roth) Hypotension (Acute) GI bleeding (Chronic) Weight loss, non-intentional (Acute) COPD (chronic obstructive pulmonary disease) (Chronic) Tobacco abuse (Acute) Anemia (Chronic) Elevated BUN (Acute) Hematuria (Acute) Hypokalemia (Acute) Respiratory failure (Acute) Pneumonia (Acute) Hypokalemia (Acute) Social History Smoking/Tobacco Use Status: Current every day Tobacco Type: cigarettes Smoking risk assessment performed?: Yes Alcohol Intake: current Alcohol Intake frequency: 3 or more drinks per day Drug use: Daily Substance use type: marijuana Housing: apartment Do you feel safe at home: Yes Do you feel safe in your relationship?: Yes
[2024-12-11 10:26] LABS: Lab Add On Test DONE
--- NOTE | 2024-12-11 10:58 | CE_ITS ---
Date of service: 12/11/24 Time of Service: 10:58 Event Note: Hypotension 80s/40s, hgb 6.4 this morning. +FOB. Some wet cough, not productive. I went to see the patient. She is tired, somewhat short of breath (on 1 liter). She denies chest pain. Not dizzy when sitting up. No fever/chills. She states she has 2-3 BMs day. At first she states she has had blood in stool since last month, but then states stools have been dark since her colon cancer surgery 4 years ago. She is A&O x 3, but history inconsistent, vague. Lungs clear, heart regular, no murmur. Abdomen +BS. soft, NT/ND. Ext warm, no cyanosis or edema. Time Spent with Patient Time spent in critical care(minutes): 55 Time Spent Included: Coordination of care, Chart review, Documenting critically ill care, Time at immediate bedside and Discussing critically ill care with other medical staff Assessment & Plan (1) GI bleeding: Admitted for pneumonia, but it appears her SOB and fatigue are more likely from GI bleed and severe anemia. Stool not grossly bloody/melena per report, her history is not clear, but +occult blood. H/o colon cancer as well as chronic GERD, smoking. At risk for upper and lower GI malignancy. She is getting a unit of blood now. I stopped enoxaparin, made NPO, PPI to IV BID. Follow h/h after transfusion Consult surgery K92.2 - Gastrointestinal hemorrhage, unspecified (2) Hypotension: I think this is hemorrhagic shock Give 500ml LR in addition to blood. Transfer to ICU for closer monitoring. pressors if not responding to blo od/fluid Acidosis evident on BMP, mild AG. Fluids/blood now, get repeat BMP and lactate with blood. Need better IV access, consult for midline but need another peripheral as only one currently and appears infiltrated. I95.9 - Hypotension, unspecified (3) Anemia: secondary to GI bleed. May be subacute, getting iron and B12 with labs. She is high risk for defficiency given gastric bypass and colectomy. D64.9 - Anemia, unspecified Plan Detail Total time on date of encounter, ([id number] and non [id number]) (minutes): 55 Time was spent: reviewing prior notes and diagnostics, providing direct patient care, ordering diagnostics and/or referrals, documenting today's visit, updating the EMR and coordinating care
[2024-12-11 11:12] LABS: Procalcitonin 0.48 ng/mL
--- NOTE | 2024-12-11 11:49 | PT.INNT ---
PT Notes Visit Reasons: pneumonia Orders received this am. Patient transferred to ICU prior to consult. Hold PT, pending new orders once medically appropriate.
--- NOTE | 2024-12-11 12:20 | W.SURGCON ---
Date of service: 12/11/24 Time of Service: 12:20 Assessment and Plan Assessment and plan (1) GI bleeding: Status: Chronic Assessment and plan: With her gastric bypass, and hemicolectomy for colon cancer, she certainly has risk factors for multiple sources of GI blood loss. And it sounds like she did have a darker stool, which would point to an upper GI source. And while her hemoglobin is down a fair amount, this is also consistent with the other cell lines, and she is over 2-1/2 L positive over the past 24 hours, so I do think that there is probably hemodilutional component here. I think it is very reasonable to continue with the blood transfusion and proton pump inhibitor therapy for now. Will repeat the hemoglobin later this evening, and see if that stabilizes. Ideally, I would rule out upper and lower GI all-in-one go rather than a single upper endoscopy today, and then having to follow-up with colonoscopy. Ideally, would be nice to get all of the pulmonary results before committing to that. If she remains stable over the next 24 hours, then we will reassess timing of endoscopy. If the hemodynamics decompensate, or the repeat hemoglobin level remains alarming, then we could give stronger consideration to an urgent EGD to at least rule that out. History of Present Illness History of Present Illness Chief Complaint: Lethargy and fatigue Narrative: Marielos is 74 years old. She was admitted to the hospital yesterday with concerns for pneumonia. ER records indicate that she presented there with a chief complaint of feeling ill, with perhaps some weakness and shortness of breath. Kira says the symptoms have been going on for about a week to a week and a half. She tells me she was concerned because of fatigue, and a cough. Otherwise, she had been feeling herself. She denies any fevers. She was admitted to the hospital after a CT scan showed some tree-in-bud opacities concerning for infectious process. She was COVID, flu, and RSV negative. She is currently undergoing a rule out for tuberculosis. This morning, her blood pressure was lower than it had been, and perhaps her heart rate was up a little bit, so there were some concerns for sepsis. Morning labs also showed a decrease in the hemoglobin by about 2 g. She was guaiac tested, and found to be Hemoccult positive. I was consulted for gastrointestinal bleeding. Significant past medical history includes what appears to be a Judith-en-Y gastric bypass, and records indicate this was revised at one point. She also appears to have had a partial colectomy for colon cancer. She tells me this is true, and that is best she can recall, the operation happened sometime in the late 1970s. She tells me her surgeries were done at [facility]. She cannot recall the last time she has had a colonoscopy, and she does not know if she has ever had an upper endoscopy. It sounds like she does have some GERD type symptoms, but she denies any abdominal complaints at this time. She denies any dysphagia or dyspepsia to me. It looks like she takes pantoprazole, but she cannot recall exactly why. She denies any obvious melena or hematochezia. Review of Systems Constitutional Constitutional: Reports fatigue and Reports weight loss Eyes Eyes: Reports system reviewed and no additional complaints, except as documented ENT Ears, Nose, Mouth, and Throat: Reports system reviewed and no additional complaints, except as documented Cardiovascular Cardiovascular: Denies chest pain and Denies dyspnea Respiratory Respiratory: Denies chest congestion, Reports cough, Denies pain on inspiration and Denies dyspnea Gastrointestinal Gastrointestinal: Denies abdominal pain, Denies belching, Denies melena, Denies nausea and Denies vomiting Genitourinary Genitourinary: Reports system reviewed and no additional complaints, except as documented Musculoskeletal Musculoskeletal: Reports back pain, Reports myalgias and Reports muscle weakness Endocrine Endocrine: Reports fatigue Hematologic/Lymphatic Hematologic/Lymphatic: Denies easy bleeding and Denies easy bruising PFSH All Active Problems (Updated 12/11/24 @ 11:14 by Frederick Roth) Hypotension (Acute) GI bleeding (Chronic) Weight loss, non-intentional (Acute) COPD (chronic obstructive pulmonary disease) (Chronic) Tobacco abuse (Acute) Anemia (Chronic) Elevated BUN (Acute) Hematuria (Acute) Hypokalemia (Acute) Respiratory failure (Acute) Pneumonia (Acute) Hypokalemia (Acute) Social History Smoking/Tobacco Use Status: Current every day Tobacco Type: cigarettes Smoking risk assessment performed?: Yes Alcohol Intake: current Alcohol Intake frequency: 3 or more drinks per day Drug use: Daily Substance use type: marijuana Housing: apartment Do you feel safe at home: Yes Do you feel safe in your relationship?: Yes Exam Const General: cooperative and frail appearing Nutritional Appearance: underweight Orientation: alert, awake, oriented to person and oriented to place [facility] [place] Head: normal to inspection Eyes General: appearance normal, both eyes and all related structures Neck Neck: normal visual inspection, full ROM and no lymphadenopathy GI Inspection: non-distended Palpation: soft and nontender Percussion: normal to percussion Auscultation: normal bowel sounds Results Last Vital Signs Temp 98.4 F 12/11/24 10:51 Pulse 101 H 12/11/24 10:51 Resp 20 12/11/24 10:51 BP 90/53 L 12/11/24 10:51 Pulse Ox 97 12/11/24 10:51 Labs 12/11/24 06:10 12/11/24 06:10 Labs: Laboratory Results - last 24 hr 12/10/24 12/10/24 12/10/24 19:58 20:35 20:53 WBC 14.69 H RBC 2.85 L Hgb 8.5 L Hct 25.3 L MCV 89 MCH 29.8 MCHC 33.6 RDW 15.1 H Plt Count 445 H MPV 9.1 Immature Gran % 2.4 Neutrophils % 83.1 Lymphocytes % 7.4 Monocytes % 6.3 Eosinophils % 0.4 Basophils % 0.4 Nucleated RBC % 0.0 Absolute Neutrophils 12.21 H Absolute Lymphocytes 1.09 L Absolute Monocytes 0.93 H Absolute Eosinophils 0.06 Absolute Basophils 0.06 RBC Morphology Hypochromasia Poikilocytosis PT INR VBG Lactate 1.1 Sodium 135 L Potassium 2.2 L* Chloride 100 Carbon Dioxide 20.4 L Anion Gap 14.6 H BUN 39 H Creatinine 1.0 Est GFR (CKD-EPI 2020) 58.39 Glucose 113 H Calcium 8.2 L Magnesium 2.1 Total Bilirubin 0.3 AST 12 L ALT 10 L Alkaline Phosphatase 93 Creatine Kinase 23 L Troponin I 12 Total Protein 6.2 L Albumin 2.4 L Procalcitonin TSH Urine Color Yellow Urine Clarity Clear Urine pH 6.0 Ur Specific [place] 1.020 Urine Protein 100 H Urine Ketones Trace H Urine Blood Small H Urine Nitrite Negative Urine Bilirubin Small H Urine Urobilinogen 0.2 Ur Leukocyte Esterase Negative Urine RBC 3-5 H Urine WBC Negative Ur Epithelial Cells Moderate Urine Crystals Negative Urine Bacteria Rare Urine Casts Negative Urine Mucus Negative Ur Culture Indicated? No Urine Glucose Negative COVID-19 Source SARS-CoV-2 (PCR) Influenza Type A (PCR) Influenza Type B (PCR) RSV (PCR) Add-On Test Request ABO/Rh Blood Type Recheck Antibody Screen Crossmatch 12/10/24 12/10/24 12/11/24 21:35 22:59 01:13 WBC 16.67 H RBC 2.72 L Hgb 8.2 L Hct 25.2 L MCV 93 D MCH 30.1 MCHC 32.5 RDW 15.3 H Plt Count 372 MPV 9.1 Immature Gran % 2.1 Neutrophils % 81.5 Lymphocytes % 9.0 Monocytes % 6.5 Eosinophils % 0.3 Basophils % 0.6 Nucleated RBC % 0.0 Absolute Neutrophils 13.59 H Absolute Lymphocytes 1.50 Absolute Monocytes 1.08 H Absolute Eosinophils 0.05 Absolute Basophils 0.10 RBC Morphology Hypochromasia Poikilocytosis PT 9.2 INR 0.9 VBG Lactate Sodium Potassium Chloride Carbon Dioxide Anion Gap BUN Creatinine Est GFR (CKD-EPI 2020) Glucose Calcium Magnesium Total Bilirubin AST ALT Alkaline Phosphatase Creatine Kinase Troponin I Total Protein Albumin Procalcitonin TSH Urine Color Urine Clarity Urine pH Ur Specific [place] Urine Protein Urine Ketones Urine Blood Urine Nitrite Urine Bilirubin Urine Urobilinogen Ur Leukocyte Esterase Urine RBC Urine WBC Ur Epithelial Cells Urine Crystals Urine Bacteria Urine Casts Urine Mucus Ur Culture Indicated? Urine Glucose COVID-19 Source Nasopharynx SARS-CoV-2 (PCR) Negative Influenza Type A (PCR) Negative Influenza Type B (PCR) Negative RSV (PCR) Negative Add-On Test Request ABO/Rh O Positive Blood Type Recheck Antibody Screen NEGATIVE Crossmatch See Detail 12/11/24 12/11/24 12/11/24 06:10 06:12 06:27 WBC 13.90 H RBC 2.15 L Hgb 6.4 L* Hct 19.1 L* MCV 89 D MCH 29.8 MCHC 33.5 RDW 15.0 H Plt Count 395 MPV 9.4 Immature Gran % 2.7 Neutrophils % 89.1 Lymphocytes % 6.0 Monocytes % 0.8 Eosinophils % 1.1 Basophils % 0.3 Nucleated RBC % 0.2 Absolute Neutrophils 12.38 H Absolute Lymphocytes 0.83 L Absolute Monocytes 0.11 Absolute Eosinophils 0.15 Absolute Basophils 0.04 RBC Morphology See Below Hypochromasia 2+ Poikilocytosis 1+ PT INR VBG Lactate Sodium 136 Potassium 3.3 L D Chloride 103 Carbon Dioxide 17.5 L Anion Gap 15.5 H BUN 41 H Creatinine 0.9 Est GFR (CKD-EPI 2020) 66.26 Glucose 190 H Calcium 7.9 L Magnesium Total Bilirubin 0.2 AST 10 L ALT 9 L Alkaline Phosphatase 74 Creatine Kinase Troponin I Total Protein 5.2 L Albumin 1.9 L Procalcitonin 0.48 TSH 0.45 Urine Color Urine Clarity Urine pH Ur Specific [place] Urine Protein Urine Ketones Urine Blood Urine Nitrite Urine Bilirubin Urine Urobilinogen Ur Leukocyte Esterase Urine RBC Urine WBC Ur Epithelial Cells Urine Crystals Urine Bacteria Urine Casts Urine Mucus Ur Culture Indicated? Urine Glucose COVID-19 Source SARS-CoV-2 (PCR) Influenza Type A (PCR) Influenza Type B (PCR) RSV (PCR) Add-On Test Request DONE ABO/Rh Blood Type Recheck O Positive Antibody Screen Crossmatch Imaging Abdomen CT scan report/results: report reviewed and image reviewed CT scan - chest: report reviewed and image reviewed CT scan - pelvis: report reviewed and image reviewed
[2024-12-11] MEDS: Pantoprazole 40 MG VIAL IVP ×2 (12:37→20:10)
[2024-12-11] MEDS: Normal Saline Flush 10 ML SYR ×3 (12:38→20:11)
[2024-12-11] MEDS: Lactated Ringers 500 ML IV ×2 (13:50→17:17)
[2024-12-11 14:14] LABS: HCT 23.2 % (36.0-46.0); HGB 7.8 g/dL (11.2-15.7)
[2024-12-11 14:24] LABS: Anion Gap 8.6 mmol/L (3-11); BUN 44 mg/dL (7-18); CO2 20.4 mmol/L (21.0-32.0); Calcium 8.0 mg/dL (8.5-10.1); Chloride 104 mmol/L (98-107); Estimated GFR 66.26 (mL/min/1.73m2); Glucose 142 mg/dL (74-106); Potassium 3.8 mmol/L (3.5-5.1); Sodium 133 mmol/L (136-145)
[2024-12-11 14:36] LABS: Iron 80 ug/dL (50-170); Total Iron Binding Capacity 200 ug/dL (250-450); Transferrin Sat 40 % (15-50)
[2024-12-11] MEDS: DOXYCYCLINE 100 MG in Normal Saline 100 ML IVPB (14:40)
[2024-12-11] MEDS: cefTRIAXone 2 GM/50 ML BAG IVPB (14:48)
[2024-12-11 14:58] LABS: Vitamin D 25 Total 27 ng/mL (30-100)
[2024-12-11 15:16] LABS: Vitamin B12 > 2000 pg/mL (193-986)
[2024-12-11] MEDS: POTASSIUM CHLORIDE/D5-0.9%NACL 1,000 ML 100 MEQ IV (15:43)
--- NOTE | 2024-12-11 19:32 | W.EVENT ---
Date of service: 12/11/24 Time of Service: 19:32 Event Note: NS called to state pt remains hypotensive. Pt visited at bedside. AAOx3 complaining of hunger and thirst. HR wnl. MAP under 65. Will transfuse 1 unit prbc and recheck vitals and labs. Pt would be willing to get pharmacological pressure support if needed. Notes reviewed from GS. Will allow intermittent ice chips for comfort until Midnight Time Spent with Patient Time spent in critical care(minutes): 10 min Time Spent Included: Coordination of care, Chart review, Documenting critically ill care, Time at immediate bedside and Discussing critically ill care with other medical staff
[2024-12-12] VITALS (113 sets, daily range): BP systolic 50–116; BP diastolic 32–78; PULSE 38–91; RESP 11–28; TEMP 36.9–37.4; O2SAT 89–100
[2024-12-12 00:29] LABS: HCT 22.1 % (36.0-46.0); HGB 7.4 g/dL (11.2-15.7); MCH 29.0 pg (27.0-33.0); MCHC 33.5 % (32.0-36.0); MCV 87 fL (80-95); MPV 9.3 fL (8.0-11.0); Platelet Count 238 10^3/uL (130-400); RBC 2.55 10^6/uL (3.93-5.22); RDW 16.1 % (11.7-14.6); RDW-SD 50.4 fL; WBC 13.82 10^3/uL (4.4-10.8)
[2024-12-12] MEDS: Albuterol/Ipratropium 3 ML UPD VIAL UPD (01:23)
[2024-12-12] MEDS: DOXYCYCLINE 100 MG in Normal Saline 100 ML IVPB ×2 (02:01→14:19)
[2024-12-12] MEDS: POTASSIUM CHLORIDE/D5-0.9%NACL 1,000 ML 100 MEQ IV ×2 (03:22→18:22)
[2024-12-12 05:59] LABS: HGB 7.1 g/dL (11.2-15.7); MCH 30.0 pg (27.0-33.0); MCHC 34.1 % (32.0-36.0); MCV 88 fL (80-95); MPV 9.2 fL (8.0-11.0); Platelet Count 231 10^3/uL (130-400); RBC 2.37 10^6/uL (3.93-5.22); RDW 16.5 % (11.7-14.6); RDW-SD 51.4 fL; WBC 13.12 10^3/uL (4.4-10.8)
[2024-12-12 06:11] LABS: HCT 20.8 % (36.0-46.0)
[2024-12-12 06:22] LABS: Anion Gap 9.3 mmol/L (3-11); BUN 31 mg/dL (7-18); CO2 19.7 mmol/L (21.0-32.0); Calcium 7.5 mg/dL (8.5-10.1); Chloride 111 mmol/L (98-107); Estimated GFR 66.26 (mL/min/1.73m2); Glucose 153 mg/dL (74-106); Potassium 3.0 mmol/L (3.5-5.1); Sodium 140 mmol/L (136-145)
[2024-12-12] MEDS: Pantoprazole 40 MG VIAL IVP ×2 (08:28→21:28)
[2024-12-12] MEDS: Multivitamin TAB 1 TAB PO (08:29)
[2024-12-12] MEDS: Calcium Carbonate *TUMS* 500 MG CHEW CH (08:29)
[2024-12-12] MEDS: Cyanocobalamin 500 MCG TAB 1000 MCG PO (08:29)
[2024-12-12] MEDS: Cholecalciferol (Vitamin D3) 1,000 UNIT TAB 1000 UNITS PO (08:29)
--- NOTE | 2024-12-12 08:58 | PDOC.CMPRO ---
Date of service: 12/12/24 Time of Service: 08:58 Care Management Progress Note Progress Note Text Progress Note Text: Kira was lying in bed, watching TV, when CM met with her earlier today. She stated that she has plenty of people who help her in the community, including her sisters, her children and grandchildren, and many friends. She is starting to feel a little stronger, especially since she had her second unit of PRBCs today. Kira is still in the ICU. She is using the commode independently. She continues to be on IVF at 100mls/h. CM requested a new PT consult today. Kira had not yet seen the surgeon today, and stated that she is unsure of her plan of care. She may need an endoscopy, and is being maintained NPO. Discharge Potential Discharge Needs: PT Evaluation and PCP F/U Appt Anticipated Barriers to Discharge: None Identified Patient/Family Education Needs: Review discharge instructions, discuss Ask Me Three Transportation: Private vehicle Plan: Anticipate that Kira will discharge once medically stable, with no new services. She will f/u with her PCP, urology (due to new hematuria), and likely the surgeon. She will transport home in a private vehicle and continue per her plan of care. CM will continue to follow. Social Determinants of Health Screening Will the Patient Participate in the Screening?: Unable to obtain
--- NOTE | 2024-12-12 08:59 | W.NUTCONSULT ---
Date of service: 12/12/24 Time of Service: 15:30 Nutritional Consult ASSESSMENT: 74yo female was admitted for PNA and found sx may be more associated with GI bleeding. She has been hypotensive. Hx of colon cancer and had hemicolectomy and has also undergone gastric bypass surgery. She has low potassium, which seems to be a chronic issue as she was treated for this last month as inpatient. With above mentioned surgeries, low potassium can result from alterations of the GI tract as well malabsorption concerns and the low K+ most likely contributing to low po intake (low K+ leads to decreased appetite, fatigue and issues with weaker contraction of digestive muscles, resulting in slower digestion, bloating and constipation concerns). Currently receiving KCl infusion at 20mEq/hour PT currently NPO pending surgical consult and possible colonoscopy and endoscopy. Weight documentation does not provide a great deal of history - shows stable weight over the last month. NUTRITIONAL DIAGNOSIS: inadequate intake related to current medical condition/NPO status. INTERVENTION: recommend checking phosphorus levels as P and K+ are interconnected and often imbalances occur together. Should consider regular K+ infusions if oral supplementation continues to be ineffective. Nutrition intervention with ONS to be offered upon resumption of PO MONITORING AND EVALUATION: Will monitor PO status/intake, nutrition-related labs, weight. Time Spent in Nutritional Counseling and Treatment: 15 min
[2024-12-12] MEDS: HYDROcodone 10/Acetaminophen 325 TAB PO ×2 (11:51→18:18)
--- NOTE | 2024-12-12 12:40 | W.PM.PROGNOT ---
Date of Service Date of service: 12/21/24 Time of Service: 12:40 Assessment and Plan Assessment and plan (1) Hypotension: Status: Acute Assessment and plan: MAPs intermittently around 60. I still think this is hemorrhagic shock rather than sepsis/distributive. She is responsive to fluids. Echo reassuring that no cardiogenic component. BPs >65 after blood this am, can give additional fluid boluses. Acidosis did resolve with fluids. Continue ICU care, monitor urine output. (2) GI bleeding: Status: Chronic Assessment and plan: Appreciate surgery input. Additional unit RBC given today as hgb dropped from 7.8 to 7.1 after increase from 6.4 after first unit. Not c/w rapid bleed but likely some degree of ongoing bleeding. Continue PPI. As per surgery, endoscopy timing pending trend h/h. (3) Anemia: Status: Chronic Assessment and plan: As mentioned above. Iron and B12 levels reassuring despite bypass history. (4) Pneumonia: Status: Acute Assessment and plan: Interstitial tree/bud on CT, a/w cough and elevated WBC, continue treatment with ceftriaxone and azithromycin. TB testing done as precautions, can read early AM 12/13 and d/c precautions if negative as expected. No exposures or known risk factors. (5) Hypokalemia: Status: Acute Assessment and plan: supplementing again today in IV fluids, follow in PM. (6) Hematuria: Status: Acute Assessment and plan: This is a new finding from October, but not heavy enough to be contributing to anemia. With smoking and cancer history, she will need urology follow up for this upon discharge. (7) Tobacco abuse: Status: Acute Assessment and plan: Recommend completing total cessation. NicoDerm as needed. I agree with COPD work up as outpatient, but can make bronchodilators prn as unclear if helping. (8) Weight loss, non-intentional: Status: Acute Assessment and plan: Consulted nutrition has been placed. Patient will be on Lovenox for DVT prophylaxis. Considering the fact that there is concern for occult malignancy believe this is the best course at this point. Subjective Subjective Interval history since last seen: Events: Transferred to unit, see event note Stool today with reddish tone two 500ml boluses LR for low BPs Echo this morning She feels okay. Shortness of breath not as bad. Interemittent cough. No fever/chill. No chest pain or palpitations, not dizzy now. No abdominal pain. Exam Narrative Exam Narrative: GEN: Alert and oriented x 3, though slow to respond at times. No acute distress HEENT-normocephalic atraumatic mucous membranes moist oropharynx is clear Cardiovascular-RRR, no murmur Pulm- Normal effort, lungs CTAB without wheeze or rales Abdomen- soft, +BS, NT/ND with no masses. Extremities-no cyanosis clubbing or edema Objective Last Vital Signs Temp 37.4 C 12/12/24 12:31 Pulse 72 12/12/24 12:25 Resp 24 12/12/24 12:30 BP 94/51 L 12/12/24 12:25 Pulse Ox 91 L 12/12/24 12:25 Laboratory Results - last 24 hr 12/11/24 12/11/24 12/11/24 01:13 13:45 19:42 WBC RBC Hgb 7.8 L Hct 23.2 L MCV MCH MCHC RDW Plt Count MPV VBG Lactate 1.4 Sodium 133 L Potassium 3.8 Chloride 104 Carbon Dioxide 20.4 L Anion Gap 8.6 BUN 44 H Creatinine 0.9 Est GFR (CKD-EPI 2020) 66.26 Glucose 142 H Calcium 8.0 L Iron 80 TIBC 200 L Transferrin % Sat 40 Vitamin B12 > 2000 H 25-OH Vitamin D Total 27 L ABO/Rh O Positive Blood Type Recheck Cancelled Antibody Screen NEGATIVE Crossmatch See Detail 12/12/24 12/12/24 00:15 05:33 WBC 13.82 H 13.12 H RBC 2.55 L 2.37 L Hgb 7.4 L 7.1 L Hct 22.1 L 20.8 L* MCV 87 88 MCH 29.0 30.0 MCHC 33.5 34.1 RDW 16.1 H 16.5 H Plt Count 238 231 MPV 9.3 9.2 VBG Lactate Sodium 140 Potassium 3.0 L Chloride 111 H Carbon Dioxide 19.7 L Anion Gap 9.3 BUN 31 H Creatinine 0.9 Est GFR (CKD-EPI 2020) 66.26 Glucose 153 H Calcium 7.5 L Iron TIBC Transferrin % Sat Vitamin B12 25-OH Vitamin D Total ABO/Rh Blood Type Recheck Antibody Screen Crossmatch Time Spent with Patient Time Spent with Patient: >50 minutes Time was spent: preparing to see the patient(eg.review tests), obtaining and/or reviewing separately otained hiistory, ordering medications,tests, procedures, referring, communicating with other health patient care secretary, indepentently interpreting results, counseling the patient and care coordination
[2024-12-12] MEDS: cefTRIAXone 2 GM/50 ML BAG IVPB (14:19)
[2024-12-12 14:42] LABS: HCT 26.6 % (36.0-46.0); HGB 9.0 g/dL (11.2-15.7)
[2024-12-12 14:48] LABS: Potassium 3.1 mmol/L (3.5-5.1)
[2024-12-12] MEDS: Lactated Ringers 500 ML IV (16:39)
[2024-12-12 18:05] LABS: CEA 1.7 ng/mL (See Note)
[2024-12-12 18:33] LABS: CA 125 30 U/mL (<30)
[2024-12-12 18:34] LABS: CA 19-9 22 U/mL (<35)
[2024-12-12] MEDS: Normal Saline Flush 10 ML SYR (21:28)
[2024-12-13] VITALS (73 sets, daily range): BP systolic 96–129; BP diastolic 46–68; PULSE 65–92; RESP 0–26; TEMP 36.7–37; O2SAT 90–98
[2024-12-13] MEDS: DOXYCYCLINE 100 MG in Normal Saline 100 ML IVPB ×2 (01:30→13:34)
[2024-12-13] MEDS: POTASSIUM CHLORIDE/D5-0.9%NACL 1,000 ML 100 MEQ IV (05:00)
[2024-12-13] MEDS: Cyanocobalamin 500 MCG TAB 1000 MCG PO (07:21)
[2024-12-13] MEDS: Normal Saline Flush 10 ML SYR ×2 (07:22→22:10)
[2024-12-13] MEDS: Calcium Carbonate *TUMS* 500 MG CHEW CH (07:22)
[2024-12-13] MEDS: Cholecalciferol (Vitamin D3) 1,000 UNIT TAB 1000 UNITS PO (07:22)
[2024-12-13] MEDS: Pantoprazole 40 MG VIAL IVP ×2 (07:22→21:06)
[2024-12-13] MEDS: Multivitamin TAB 1 TAB PO (07:23)
--- NOTE | 2024-12-13 08:16 | IN_ITS ---
PT Notes Visit Reasons: Pneumonia Physical Therapy Inpatient Initial Evaluation Date: 12/13/2024 Referring Doctor: Frederick Roth MD PT Orders: PT CONSULT: Safety Consult for D/C Precautions: Fall. Standard. Activity as tolerated. As of 12/13/2024, patient is off TB precautions per Dr. Roth. On liquid diet. Patient Profile/Admitting Diagnosis: Patient is a 74-year-old female patient admitted for management of hypotension, GI bleeding, anemia, PNA, hypokalemia, hematuria, and unexplained weight loss. She presented to the ED on 12/10/2024 due to SOB, slurred speech, and week-long worsening weakness. PMHX: All Active Problems (Updated 12/11/24 @ 00:26 by Nahid Camacho MD) Weight loss, non-intentional (Acute) COPD (chronic obstructive pulmonary disease) (Chronic) Tobacco abuse (Acute) Anemia (Chronic) Elevated BUN (Acute) Hematuria (Acute) Hypokalemia (Acute) Respiratory failure (Acute) Pneumonia (Acute) Hypokalemia (Acute) Social History/Home Situation: Lives alone in a private home with no steps to enter. Goes to friend's house with 3 steps to enter and rails. Independent with al aspects of ADLs prior to admission. Equipment Owned/DME: None Subjective: Per Nurse Esteban, patient was just cleared from airborne precautions and may walk in the hallway for her PT session. Patient was agreeable to strength, balance, and mobility tests for this sssion. No falls in the past year. Objective: General Observation: Telemetry monitoring in place. IV through L UE. Mental Status: Alert and oriented as to person, place, time, and purpose. Able to pay attention, focus, and respond appropriately. Pain: None reported Vital Signs: WNL as closely monitored by nursing staff ROM: Right Upper Extremity: Shoulder Flexion WFL. Shoulder abduction WFL. Elbow flexion WFL. Wrist flexion WFL. Functional opening and closing of hand WFL. Left Upper Extremity: Shoulder Flexion WFL. Shoulder abduction WFL. Elbow flexion WFL. Wrist flexion WFL. Functional opening and closing of hand WFL. Right Lower Extremity: Hip flexion WFL. Hip abduction WFL. Knee flexion WFL. Ankle dorsiflexion WFL. Ankle plantarflexion WFL. Left Lower Extremity: Hip flexion WFL. Hip abduction WFL. Knee flexion WFL. Ankle dorsiflexion WFL. Ankle plantarflexion WFL. Strength: Right Upper Extremity: Shoulder flexors 4-/5. Shoulder abductors 4-/5. Elbow flexors 4-/5. Elbow extensors 4-/5. Wastewater Superintendent strong. Left Upper Extremity: Shoulder flexors 4-/5. Shoulder abductors 4-/5. Elbow flexors 4-/5. Elbow extensors 4-/5. Wastewater Superintendent strong. Right Lower Extremity: Hip flexors 4-/5. Hip abductors 4-/5. Knee flexors 4-/5. Knee extensors 4-/5. Ankle dorsiflexors 4-/5. Ankle plantarflexors 4-/5. Left Lower Extremity: Hip flexors 4-/5. Hip abductors 4-/5. Knee flexors 4-/5. Knee extensors 4-/5. Ankle dorsiflexors 4-/5. Ankle plantarflexors 4-/5. Bed Mobility/Transfers: Rolling supervision Supine to sit supervision Sit to supine supervision Sit to stand supervision Stand to sit supervision Bed to reclining chair stand by assist Reclining chair to bed stand by assist Gait: Facilitated safe and correct performance of level surface ambulation using no assistive device with decreased gait speed than her baseline as verbalized by patient. Directional change slowed down with mild path deviation but no LOB. Minimal shortness of breath during and after activity with HR highest of 95 bpm (lowest of 75 bpm) and SaO2 of 90%-94% on RA. Stairs: Guided patient with safe negotiation of 6 x 4-inch steps and 4 x 2-inch steps while holding nto B rails for support. Wanted to make sure she did the stairs because even though she does not have stairs at home her friend's house, which she frequents often, has them. Balance: Static Sitting: Normal Dynamic Sitting: Normal Static Standing: Good Dynamic Standing: fair Special Tests: Mobility Limitations Standardized Measure [facility] AM-PAC 6 clicks Basic Mobility Inpatient Short Form: Raw Score: 21 CMS Score: 29% deficit Informed Consent/Education: Patient was instructed in purpose of PT consult and plan of care. Agreeable to proceed with established PT POC to achieve personal goals. Assessment: Patient presents with clinical signs and symptoms consistent with current/admitting diagnoses that have resulted to mobility limitations, gait instability, generalized weakness, and overall ADL decline as demonstrated by the following impairment level findings: 1. Decreased strength to B UE/LE major muscle groups 2. Impaired standing balance 3. Impaired activity tolerance 4. Shortness of breath Impairments are contributing to the following functional limitations: 1. Increased completion time for mobility ADL performance 2. Increased risk for falls 3. Difficulty with managing steps alone safely Patient is assessed as a 82657 moderate complexity based on the following: History: 74-year-old female with past medical history as indicated above Examination: Demonstrable impairment in strength, balance, and mobility level with underlying impairments and functional limitations as exhibited above Presentation: Evolving Decision Makin Imoderate complexity Goals: Goals X1 week 1. Supine-Sit independent 2. Sit-Supine independent 3. Sit-Stand independent 4. Stand-Sit independent 5. Bed-Chair independent 6. Chair-Bed independent 7. Independent gait on level surface with no AD for at least 300 feet without report of pain nor dyspnea 8. Independent stair negotiation while holding onto B rails for at least 3 steps without report of pain nor dyspnea 9. Independent with home exercise program 10. Normal static and dynamic standing balance/tolerance Plan of Care/Treatment Plan: 1-2x/day, 7 days/week x 1 week. Plan of care has been reviewed with the WELL LOGGING CAPTAIN providing the service under Physical Therapy direction. Initiate Physical Therapy intervention for pain management as needed, strengthening, bed mobility, transfers, gait, stairs, balance training, and use of assistive device. DISCHARGE RECOMMENDATIONS: PT TREATMENT CODE/TIME: 78019 x 20 minutes for 1 unit, 76980 x 15 minutes for 1 unit (8:16-8:51). Thank you for the opportunity to participate in the care of this patient. Kajal Rueda PT, DPT, CLT [facility] [place], [place]
[2024-12-13 08:38] LABS: HCT 24.3 % (36.0-46.0); HGB 8.2 g/dL (11.2-15.7); MCH 29.9 pg (27.0-33.0); MCHC 33.7 % (32.0-36.0); MCV 89 fL (80-95); MPV 9.0 fL (8.0-11.0); Platelet Count 251 10^3/uL (130-400); RBC 2.74 10^6/uL (3.93-5.22); RDW 16.7 % (11.7-14.6); RDW-SD 51.4 fL; WBC 14.59 10^3/uL (4.4-10.8)
[2024-12-13 08:54] LABS: Anion Gap 11.3 mmol/L (3-11); BUN 21 mg/dL (7-18); CO2 18.7 mmol/L (21.0-32.0); Calcium 7.6 mg/dL (8.5-10.1); Chloride 114 mmol/L (98-107); Estimated GFR 89.58 (mL/min/1.73m2); Glucose 118 mg/dL (74-106); Sodium 144 mmol/L (136-145)
[2024-12-13 08:56] LABS: Potassium 2.9 mmol/L (3.5-5.1)
[2024-12-13 09:00] LABS: Magnesium 1.6 mg/dL (1.8-2.4)
--- NOTE | 2024-12-13 09:00 | PDOC.CMPRO ---
Date of service: 12/13/24 Time of Service: 09:00 Care Management Progress Note Progress Note Text Progress Note Text: Kira was sitting up in bed when CM met with her today. She was very pleasant to chat with. Kira stated that she is feeling better than she did when she first came in. She is tolerating sips of liquids, but is still on running IVF. Kira is scheduled to have a scope tomorrow. She will have an EGD tomorrow with a concurrent colonoscopy. The plan is to evaluate her gastric bypass, and to r/o lower GI bleed. Kira is aware of the planned procedures. Kira had a PT evaluation today. It was recommended that she have home health PT. When CM asked about this, Kira declined. She will continue to work with PT while here, and if she changes her mind, she will let staff know. CM let her know that she would check in again on this when her discharge date is more clear. Discharge Potential Discharge Needs: PCP F/U Appt Anticipated Barriers to Discharge: None Identified Patient/Family Education Needs: Review discharge instructions, discuss Ask Me Three Transportation: Private vehicle Plan: Anticipate that Kira will discharge once medically stable, with no new services. She will f/u with her PCP, urology (due to new hematuria), and likely the surgeon. She will transport home in a private vehicle and continue per her plan of care. CM will continue to follow. Social Determinants of Health Screening Will the Patient Participate in the Screening?: Unable to obtain
[2024-12-13] MEDS: MAGNESIUM SULFATE 4 GM/100 ML BAG IV_INF (10:34)
[2024-12-13] MEDS: POTASSIUM CHLORIDE 20 MEQ/100 ML BAG 50 MEQ IV_INF ×3 (10:43→21:05)
--- NOTE | 2024-12-13 12:09 | PGE_ITS ---
Date of Service Date of service: 12/12/24 Time of Service: 17:16 Assessment and Plan Assessment and plan (1) GI bleeding: Status: Chronic Assessment and plan: suspect secondary to marginal ulcer based on history. She is high risk for marginal ulcer based on gastric bypass and daily use of 2400mg of ibuprofen for arthritis pain. Recommend continued BID IV protonix. If bleeding picks up again, change to a drip. consider carafate if bleeding picks up again as well. EGD to evaluate her bypass once she is cleared from TB concern standpoint. Plan concurrent colonoscopy to rule out lower GI bleed in case upper is negative for source. personal history of colon resection for cancer and is at risk for recurrence certainly. (2) Weight loss, non-intentional: Status: Acute Assessment and plan: may have stricturing of her bypass. 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 (3) Status following gastric bypass for weight loss: Status: Acute Assessment and plan: unuque risk for marginal ulcer bleeding related to NSAID use in a bypass patient. Will evaluate with egd when medically appopriate. (4) Hypotension: Status: Acute Assessment and plan: asymptomatic today and remains fluid responsive. cont to monitor. does not appea r to be a sign of rapid acute blood loss. (5) NSAID long-term use: Status: Acute Assessment and plan: Will not be allowed to continue taking ibuprofen because of her bypass. she will need an alternative drug for relief. Consider tylenol and consider follow up w pcp to address this need. Subjective Subjective Patient reports: feels better (still coughing and having some loose stools, but denies dizziness since transfusion. ) Exam Narrative Exam Narrative: awake, NAD eomi, MMM nomal resp effort abdomen soft, nontnder Objective Last Vital Signs Temp 98.1 F 12/13/24 11:47 Pulse 80 12/13/24 11:47 Resp 23 12/13/24 11:47 BP 123/68 12/13/24 11:47 Pulse Ox 94 12/13/24 11:47 Laboratory Results - last 24 hr 12/11/24 12/12/24 12/13/24 01:13 14:30 08:25 WBC 14.59 H RBC 2.74 L Hgb 9.0 L 8.2 L Hct 26.6 L 24.3 L MCV 89 MCH 29.9 MCHC 33.7 RDW 16.7 H Plt Count 251 MPV 9.0 Sodium 144 Potassium 3.1 L 2.9 L* Chloride 114 H Carbon Dioxide 18.7 L Anion Gap 11.3 H BUN 21 H Creatinine 0.7 Est GFR (CKD-EPI 2020) 89.58 Glucose 118 H Calcium 7.6 L Magnesium 1.6 L Crossmatch See Detail Time Spent with Patient Time Spent with Patient: <25 minutes Time was spent: preparing to see the patient(eg.review tests), referring, communicating with other health medicare insurance specialist, counseling the patient and care coordination
[2024-12-13] MEDS: Lidocaine 5% Patch 2 PATCH TP (12:12)
[2024-12-13] MEDS: DEXTROSE 5%-LACTATED RINGERS 1,000 ML 125 ML IV ×2 (12:13→22:05)
--- NOTE | 2024-12-13 14:48 | CHAPLAIN ---
Kira was resting in bed when I visited. She said she's had family members who live locally visiting. She is from [facility]. I explained my role and offered support.
[2024-12-13 16:20] LABS: HCT 24.0 % (36.0-46.0); HGB 8.1 g/dL (11.2-15.7)
[2024-12-13] MEDS: cefTRIAXone 2 GM/50 ML BAG IVPB (16:27)
--- NOTE | 2024-12-13 17:26 | PGE_ITS ---
Date of Service Date of service: 12/13/24 Time of Service: 17:27 Assessment and Plan Assessment and plan (1) Hypotension: Status: Acute Assessment and plan: Hemorrhagic shock, responded to fluids and blood, BP has stabilzed today, but will continue in ICU until endoscopies done. (2) GI bleeding: Status: Chronic Assessment and plan: Appreciate surgery input, prepping today for upper and lower EGD 12/14. 2 units given 12/11, one unit RBC 12/12, one gelatenous heme+ stool today. Some drop on PM hemoglobin, follow in am. Continue PPI. (3) Anemia: Status: Chronic Assessment and plan: As above, acute blood loss. Iron and B12 levels reassuring despite bypass history. (4) Pneumonia: Status: Acute Assessment and plan: Interstitial tree/bud on CT, a/w cough and elevated WBC, continue treatment with ceftriaxone and azithromycin. TB testing done as precautions, negative today so given low pretest probability can remove precautions without repeating. (5) Hypokalemia: Status: Acute Assessment and plan: still low 12/13, supplementing again today IV, cancel oral given concern for ulcer. Supplement mg as well. (6) Hematuria: Status: Acute Assessment and plan: This is a new finding from October, but not heavy enough to be contributing to anemia. With smoking and cancer history, she will need urology follow up for this upon discharge. (7) Tobacco abuse: Status: Acute Assessment and plan: Recommend completing total cessation. NicoDerm as needed. I agree with COPD work up as outpatient. (8) Weight loss, non-intentional: Status: Acute Assessment and plan: Appreciate nutrition input Patient will be on Lovenox for DVT prophylaxis. Considering the fact that there is concern for occult malignancy believe this is the best course at this point. Subjective Subjective Patient reports: no new complaints, tolerating liquids well and voiding w/o difficulty; denies nausea, vomiting, shortness of breath or fever Interval history since last seen: She feels okay. Up walking with PT, didn't feel dizzy. Legs still a little weak. Taking some fluids po, not much appetite for solid food. No chest pain or palpitations. occaisional cough. Exam Narrative Exam Narrative: GEN: Alert and oriented x 3, though slow to respond at times. No acute distress Cardiovascular-RRR, no murmur Pulm- Normal effort, lungs CTAB without wheeze or rales Abdomen- soft, +BS, NT/ND with no masses. Extremities-no cyanosis clubbing or edema Objective Last Vital Signs Temp 36.7 C 12/13/24 11:47 Pulse 75 12/13/24 16:30 Resp 21 12/13/24 16:30 BP 112/53 L 12/13/24 16:26 Pulse Ox 94 12/13/24 16:30 Laboratory Results - last 24 hr 12/11/24 12/13/24 12/13/24 06:10 08: 16:10 WBC 14.59 H RBC 2.74 L Hgb 8.2 L 8.1 L Hct 24.3 L 24.0 L MCV 89 MCH 29.9 MCHC 33.7 RDW 16.7 H Plt Count 251 MPV 9.0 Sodium 144 Potassium 2.9 L* Chloride 114 H Carbon Dioxide 18.7 L Anion Gap 11.3 H BUN 21 H Creatinine 0.7 Est GFR (CKD-EPI 2020) 89.58 Glucose 118 H Calcium 7.6 L Magnesium 1.6 L Carcinoembryonic Ag 1.7 CA 19-9 Antigen 22 CA 125 Antigen 30 H Time Spent with Patient Time Spent with Patient: 35-49 minutes Time was spent: preparing to see the patient(eg.review tests), obtaining and/or reviewing separately otained hiistory, ordering medications,tests, procedures, referring, communicating with other health career placement services counselor, indepentently interpreting results, counseling the patient and care coordination
[2024-12-13] MEDS: Nulytely 4000 ML BTL PO (18:06)
[2024-12-14] VITALS (86 sets, daily range): BP systolic 65–138; BP diastolic 44–86; PULSE 61–90; RESP 0–27; TEMP 36.3–37.2; O2SAT 95–98; BMI 20.7
[2024-12-14] MEDS: DOXYCYCLINE 100 MG in Normal Saline 100 ML IVPB ×2 (01:59→15:54)
[2024-12-14 04:52] LABS: HCT 22.1 % (36.0-46.0); HGB 7.6 g/dL (11.2-15.7); MCH 30.4 pg (27.0-33.0); MCHC 34.4 % (32.0-36.0); MCV 88 fL (80-95); MPV 9.2 fL (8.0-11.0); Platelet Count 209 10^3/uL (130-400); RBC 2.50 10^6/uL (3.93-5.22); RDW 16.5 % (11.7-14.6); RDW-SD 50.7 fL; WBC 13.48 10^3/uL (4.4-10.8)
[2024-12-14 05:09] LABS: Anion Gap 6.9 mmol/L (3-11); BUN 13 mg/dL (7-18); CO2 23.1 mmol/L (21.0-32.0); Calcium 7.6 mg/dL (8.5-10.1); Chloride 113 mmol/L (98-107); Estimated GFR 92.97 (mL/min/1.73m2); Glucose 130 mg/dL (74-106); Potassium 3.2 mmol/L (3.5-5.1); Sodium 143 mmol/L (136-145)
[2024-12-14 05:10] LABS: Magnesium 2.1 mg/dL (1.8-2.4)
[2024-12-14] MEDS: DEXTROSE 5%-LACTATED RINGERS 1,000 ML 125 ML IV ×3 (05:57→18:52)
[2024-12-14] MEDS: Normal Saline Flush 10 ML SYR (08:45)
[2024-12-14] MEDS: Pantoprazole 40 MG VIAL IVP ×2 (08:45→20:56)
[2024-12-14] MEDS: Ondansetron 4 MG/2 ML VIAL IVP (09:03)
--- NOTE | 2024-12-14 10:52 | W.ANESPRE ---
General Info Date of Service Date Performed: 12/14/24 Height: 5 ft 3 in Weight: 53.1 kg Body Mass Index (BMI): 20.7 Surgical Procedure: Operation Date: 12/14/24 12:05 Proposed Procedure Side Surgeon p Colonoscopy/Gastroscopy Uma Toledo MD Meds Allergies and Home Medications Allergies Allergy/AdvReac Type Severity Reaction Status Date / Time omeprazole Allergy Severe Dizziness/L Verified 12/10/24 19:21 ighthead procaine (From Novocain) Allergy Severe Anaphylaxis Verified 12/10/24 19:21 morphine AdvReac Intermediate Psychosis Verified 12/10/24 19:21 Home Medication ?Medication ?Instructions ?Recorded calcium carbonate (Calcium 500) 500 mg PO DAILY 11/13/24 cholecalciferol (vitamin D3) 25 1,000 unit PO DAILY 11/13/24 mcg (1,000 unit) tablet cyanocobalamin (vitamin B-12) 1,000 mcg PO DAILY 11/13/24 1,000 mcg capsule hydrocodone 10 mg-acetaminophen 1 tab PO Q6H PRN 11/13/24 300 mg tablet multivitamin (Daily Multi-Vitamin 1 tab PO DAILY 11/13/24 tablet) pantoprazole 40 mg tablet,delayed 40 mg PO DAILY 11/13/24 release potassium chloride 20 mEq oral 20 meq PO DAILY #3 ea 11/13/24 packet Current Visit Medications: Current Medications Generic Name Dose Route Start Last Admin Trade Name Freq PRN Reason Stop Dose Admin Hydrocodone Bitart/Acetaminophen 1 tab 12/11/24 08:46 12/12/24 18:18 Hydrocodone 10/Acetaminophen 325 Tab PO 1 tab Q6H PRN PRN Administration Severe Pain Al Hydrox/Mg Hydrox/Simethicone 30 ml 12/11/24 00:05 Mylanta Suspension 30 Ml Cup PO Q2H PRN PRN Albuterol Sulfate 2.5 mg 12/11/24 00:05 Albuterol 2.5 Mg/3 Ml Inh Soln Vial UPD Q2H PRN PRN Albuterol/Ipratropium 3 ml 12/12/24 08:17 Albuterol/Ipratropium 3 Ml Upd Vial UPD Q6H PRN PRN Bacteriostatic Water 0 ml 12/10/24 21:23 Water,Injection,Bacteriostatic 30 Ml Vial IJ DIRECTED PRN Calcium Carbonate 500 mg 12/11/24 08:30 12/14/24 09:10 Calcium Carbonate *Tums* 500 Mg Chew CH Not Given DAILY [facility] Cholecalciferol 1,000 units 12/11/24 08:30 12/14/24 09:10 Cholecalciferol (Vitamin D3) 1,000 Unit Tab PO Not Given DAILY ANGELIQUE Cyanocobalamin 1,000 mcg 12/11/24 08:30 12/14/24 09:10 Cyanocobalamin 500 Mcg Tab PO Not Given DAILY [facility] Docusate Sodium 100 mg 12/11/24 00:05 Docusate Sodium 100 Mg Cap PO TID PRN PRN Guaifenesin/Dextromethorphan 5 ml 12/13/24 00:13 Guaifenesin/D-Methorphan Hb 5 Ml Cup PO Q4H PRN PRN Doxycycline Hyclate 100 mg/ 100 mls @ 100 mls/hr 12/11/24 14:00 12/14/24 04:16 Sodium Chloride IVPB Infused Q12H ANGELIQUE Infusion Dextrose/Lactated Ringer's 1,000 mls @ 125 mls/hr 12/13/24 11:45 12/14/24 05:57 Dextrose 5%-Lr IV 125 mls/hr INFUSION [facility] Administration Ceftriaxone Sodium/Dextrose 2 gm in 50 mls @ 100 mls/hr 12/13/24 16:00 12/13/24 22:10 Rocephin IVPB Infused Q24H [facility] Infusion Lidocaine 2 patch 12/13/24 11:30 12/13/24 12:12 Lidocaine 5% Patch TP 2 patch Q24H ANGELIQUE Administration Multivitamins 1 tab 12/11/24 08:30 12/14/24 09:10 Multivitamin Tab PO Not Given DAILY [facility] Ondansetron HCl 4 mg 12/14/24 08:57 12/14/24 09:03 Ondansetron 4 Mg/2 Ml Vial IVP 4 mg Q8H PRN PRN Administration Pantoprazole Sodium 40 mg 12/11/24 10:05 12/14/24 08:45 Pantoprazole 40 Mg Vial IVP 40 mg BID ANGELIQUE Administration Polyethylene Glycol 17 gm 12/11/24 00:05 Polyethylene Glycol 3350 17 Gm Packet PO DAILY PRN PRN Constipation Sodium Cl/Sod Bicarb/Potass Cl/PEG 4,000 ml 12/13/24 18:00 12/13/24 18:06 Nulytely 4000 Ml Btl PO 4,000 ml DIRECTED ANGELIQUE Administration Tuberculin 5 tu 12/11/24 01:00 12/11/24 01:20 Tuberculin, Purified Protein 5 Tu/0.1 Ml Dose ID 5 tu TODAY ANGELIQUE Administration PFSH Active Problems Active Problems: Problem Status Onset Code NSAID long-term use Acute Z79.1 Status following gastric bypass for weight loss Acute Z98.84 Hypotension Acute I95.9 GI bleeding Chronic K92.2 Weight loss, non-intentional Acute R63.4 COPD (chronic obstructive pulmonary disease) Chronic J44.9 Tobacco abuse Acute Z72.0 Anemia Chronic D64.9 Elevated BUN Acute R79.9 Hematuria Acute R31.9 Hypokalemia Acute E87.6 Respiratory failure Acute J96.90 Pneumonia Acute J18.9 Tobacco Smoking/Tobacco Use Status: Current every day Tobacco Type: cigarettes Passive smoking exposure: No Alcohol Alcohol Intake: current Alcohol intake frequency: 3 or more drinks per day Substance Use Substance use: Daily Substance use type: marijuana Vital Signs and Lab Results Vital Signs Most Recent Vital Signs in EMR: Most Recent Vital Signs Temp Pulse Resp BP Pulse Ox 36.3 C L 70 25 H 113/50 L 96 12/14/24 04:35 12/14/24 09:01 12/14/24 09:01 12/14/24 09:01 12/13/24 23:30 Lab Results 12/14/24 04:25 12/14/24 04:25 Blood Type / Crossmatch: Antibody Screen NEGATIVE 12/11/24 Crossmatch See Detail 12/11/24 Complete Blood Count: WBC, (4.4-10.8) 13.48 10^3/uL H Today, 04:25 RBC, (3.93-5.22) 2.50 10^6/uL L Today, 04:25 Hgb, (11.2-15.7) 7.6 g/dL L Today, 04:25 Hct, (36.0-46.0) 22.1 % L Today, 04:25 Plt Count, (130-400) 209 10^3/uL Today, 04:25 VBG Lactate, (<or=2.0) 1.4 mmol/L 12/11/24, 13:45 Complete Metabolic Panel: Sodium, (136-145) 143 mmol/L Today, 04:25 Potassium, (3.5-5.1) 3.2 mmol/L L Today, 04:25 Chloride, (98-107) 113 mmol/L H Today, 04:25 Carbon Dioxide, (21.0-32.0) 23.1 mmol/L Today, 04:25 BUN, (7-18) 13 mg/dL Today, 04:25 Creatinine, (0.55-1.02) 0.6 mg/dL Today, 04:25 Est GFR (CKD-EPI 2020), (mL/min/1.73m2) 92.97 Today, 04:25 Magnesium, (1.8-2.4) 2.1 mg/dL Today, 04:25 Calcium, (8.5-10.1) 7.6 mg/dL L Today, 04:25 Albumin, (3.4-5.0) 1.9 g/dL L 12/11/24, 06:10 Glucose, (74-106) 130 mg/dL H Today, 04:25 Liver Function Panel: ALT, (14-59) 9 U/L L 12/11/24, 06:10 AST, (15-37) 10 U/L L 12/11/24, 06:10 Coagulation Panel: INR, (0.9-1.1) 0.9 12/10/24, 21:35 PT, (9.1-11.1) 9.2 sec 12/10/24, 21:35 Cardiac Panel: Troponin I, (<or=51) 12 ng/L 12/10/24 Creatine Kinase, (26-192) 23 U/L L 12/10/24 Thyroid Panel: TSH, (0.36-3.74) 0.45 uIU/mL 12/11/24, 06:10 Infectious Disease: SARS-CoV-2 (PCR), (Negative) Negative 12/10/24, 21:35 COVID-19 Source Nasopharynx 12/10/24, 21:35 Influenza Type A (PCR), (Negative) Negative 12/10/24, 21:35 Influenza Type B (PCR), (Negative) Negative 12/10/24, 21:35 RSV (PCR), (Negative) Negative 12/10/24, 21:35 Anesthesia Assessment and Plan Anesthesia History Personal History: No History of Anesthesia Complications Family History: No Family History of Anesthesia Complications Exercise Tolerance Exercise Tolerance: Metabolic Equivalents>4 Pertinent Negatives Pertinent Negatives: No Symptoms of GERD Cardiac & Pulmonary Exam Cardiac Exam: Normal S1/S2 Heart Sounds Pulmonary Exam: Clear Bilateral Breath Sounds Implantable Cardiac Device Does patient have a Pacemaker or an ICD?: No Airway Exam Known Difficult Airway: No Mallampati Class: 2 Mouth Opening: Normal (> 3cm) Thyromental Distance: Greater than 3 cm Neck Range of Motion: Full ROM Neck Circumference: Normal Teeth Condition: Generalized Poor Dentition ASA Classification ASA Score: ASA 3 Emergency Case?: No NPO Status NPO Status: NPO Clears >2 hours, Solids >8 hours Anesthesia Plan Resuscitation Status: Full Code Anesthesia Technique: General Anesthesia Airway Planned: Natural Airway Monitors Used: Standard Monitors
[2024-12-14] MEDS: Lidocaine 5% Patch 2 PATCH TP (11:39)
--- NOTE | 2024-12-14 12:36 | PHA.REVIEW2 ---
Pharmacy Admission Review Admission Clinical Review Admission Pharmacy Review: NSAID long-term use (Acute) Status following gastric bypass for weight loss (Acute) Hypotension (Acute) Weight loss, non-intentional (Acute) Tobacco abuse (Acute) Elevated BUN (Acute) Hematuria (Acute) Pneumonia (Acute) omeprazole Allergy (Severe, Verified 12/10/24 19:21) Dizziness/Lighthead procaine (From Novocain) Allergy (Severe, Verified 12/10/24 19:21) Anaphylaxis morphine Adverse Reaction (Intermediate, Verified 12/10/24 19:21) Psychosis Resuscitation Status DNR/DNI Height 5 ft 3 in Weight 53.1 kg Comments Comments/Follow Ups: OR today Pharmacy Admission Review Renal Dosing Renal Dosing: BUN 13 mg/dL (7-18) 12/14/24 04:25 Creatinine 0.6 mg/dL (0.55-1.02) 12/14/24 04:25 Medications needing adjustments: Reviewed (CrCl 40.12 mL/min) List of meds needing interventions: Current medications are okay Anticoagulation Anticoagulation: Hgb 7.6 g/dL (11.2-15.7) L 12/14/24 04:25 Hct 22.1 % (36.0-46.0) L 12/14/24 04:25 Plt Count 209 10^3/uL (130-400) 12/14/24 04:25 INR 0.9 (0.9-1.1) 12/10/24 21:35 Creatinine 0.6 mg/dL (0.55-1.02) 12/14/24 04:25 DVT Prophylaxis: Intervened (SCDs - progress note from yesterday mentioned Lovenox but no order. Reached out to provider, waiting to hear back.) Opiate Usage Evaluate Pain Scale/Pains Meds: Reviewed (hydrocodone 10/325mg q6h PRN - 1 tab / 24hrs) Scheduled Bowel Reg ordered if on Opiates?: No (PRN docusate / Miralax) Relevant Labs Relevant Labs: Sodium 143 mmol/L (136-145) 12/14/24 04:25 Potassium 3.2 mmol/L (3.5-5.1) L 12/14/24 04:25 Chloride 113 mmol/L (98-107) H 12/14/24 04:25 Magnesium 2.1 mg/dL (1.8-2.4) 12/14/24 04:25 Electrolytes, C-Reactive P, ESR: Reviewed (K increased from 2.9) Cardiac Review Cardiac Review: Troponin I 12 ng/L (<or=51) 12/10/24 20:35 Blood Pressure 109/58 1152 Blood Pressure 109/58 1023 Blood Pressure 113/50 0901 Blood Pressure 108/50 0401 BP, HR, EF%: Reviewed (HR WNL) QTc Review QTc: Reviewed (421 from 12/10/24) IV to PO Switch IV Medications: Reviewed (ceftriaxone, doxycycline, ondansetron and pantoprazole) Home Meds Home Med List reviewed: Reviewed Relevent Home Meds Not ordered & why?: potassium (was ordered and the discontinued by provider) Current Meds Current Medication Order Review: Intervened Comments: Added patch removal order for lidocaine patch Changed lidocaine patch timing to be on even hour per pharmacy protocol Added IV admission access order Pharmacy Antibiotic Review Relevant Labs: WBC 13.48 10^3/uL (4.4-10.8) H 12/14/24 04:25 Procalcitonin 0.48 ng/mL 12/11/24 06:27 Temperature 36.3 C Microbiology 12/10/24 21:25 Blood Culture - Preliminary Blood NO GROWTH 72 HOURS 12/10/24 21:35 Blood Culture - Preliminary Blood NO GROWTH 72 HOURS 12/13/24 12:54 Stool Occult Blood (SHUN) - Final Stool Pharmacy Antibiotic Activity: C/S review and Reviewed, no change Comments: Patient is on ceftriaxone and doxycycline, day 3, for pneumonia. WBC decreased from 14.59. Comments Comments/Follow Ups: OR today
--- NOTE | 2024-12-14 13:24 | W.ANESPOSTOP ---
Postoperative Evaluation Date, Time and Location Date Performed: 12/14/24 Time Performed: 13:25 Patient Location: Day Surgery Unit Vital Signs Most Recent Imported Vital Signs: Most Recent Vital Signs Temp Pulse Resp BP Pulse Ox 36.9 C 72 18 109/58 L 96 12/14/24 11:00 12/14/24 10:23 12/14/24 11:52 12/14/24 11:52 12/13/24 23:30 Pain Score Most Recent Pain Score: Most Recent Pain Score Pain Level 0 12/13/24 20:01 Assessment Mental Status: Awake (Alert & Oriented to Patient Baseline) Airway and Respiratory Function: Patent airway with normal (patient baseline) respiratory exam Cardiovascular Function: Hemodynamically Stable Hydration Status: Adequately Hydrated Nausea & Vomiting: No Nausea or Vomiting Pain: Pt. Denies Any Pain Peripheral Nerve Block: Patient did not receive a nerve block
--- NOTE | 2024-12-14 14:04 | PGE_ITS ---
Date of Service Date of service: 12/14/24 Time of Service: 14:04 Assessment and Plan Assessment and plan (1) Hypotension: Status: Acute Assessment and plan: Hemorrhagic shock, responded to fluids and blood, BP has stabilzed by 12/13, but hypotensive again post-op related to propofol. Will bolus with LR and start norepinephrine, expecting this will be short term. Continue in ICU until stabilizes. (2) GI bleeding: Status: Chronic Assessment and plan: Appreciate surgery input, s/p upper and lower EGD 12/14 showing duodenal and gastric ulcers that were no longer bleeding. 2 units given 12/11, one unit RBC 12/12. Hemoglobin still trending down but more slowly. Continue PPI IV BID, adding carafate with diet. (3) Anemia: Status: Chronic Assessment and plan: As above, acute blood loss. Iron and B12 levels reassuring despite stomach surgery history. (4) Pneumonia: Status: Acute Assessment and plan: Diagnosed based on interstitial tree/bud on CT, a/w cough and elevated WBC, continue treatment with ceftriaxone and azithromycin. TB testing done as precaution, negative. Symptoms resolving (5) Hypokalemia: Status: Inactive Assessment and plan: still low 12/13, supplementing again today IV (6) Hematuria: Status: Acute Assessment and plan: This is a new finding from October, but not heavy enough to be contributing to anemia. With smoking and cancer history, she will need urology follow up for this upon discharge. (7) Tobacco abuse: Status: Acute Assessment and plan: Recommend completing total cessation. NicoDerm as needed. I agree with COPD work up as outpatient. (8) Weight loss, non-intentional: Status: Acute Assessment and plan: Appreciate nutrition input, get phos with labs Patient will be on Lovenox for DVT prophylaxis. Considering the fact that there is concern for occult malignancy believe this is the best course at this point. Subjective Subjective Patient reports: voiding w/o difficulty; denies vomiting, shortness of breath or fever Interval history since last seen: events: prepped for endoscopy/colonoscopy today Hypotension post op, sensitive to propofol per report When seen prior to endoscopy, she felt well, much better than when she came in. No chest pain, dizziness, palpitations, SOB. Exam Narrative Exam Narrative: GEN: Alert and oriented x 3, though slow to respond at times. No acute distress Cardiovascular-RRR, no murmur Pulm- Normal effort, lungs somewhat deminised diffusesly, but CTAB without wheeze or rales Abdomen- soft, +BS, NT/ND with no masses. Extremities-no cyanosis clubbing or edema Objective Last Vital Signs Temp 36.9 C 12/14/24 11:00 Pulse 71 12/14/24 13:31 Resp 22 12/14/24 13:31 BP 68/47 L 12/14/24 13:31 Pulse Ox 96 12/13/24 23:30 Laboratory Results - last 24 hr 12/11/24 12/13/24 12/14/24 06:10 16:10 04:25 WBC 13.48 H RBC 2.50 L Hgb 8.1 L 7.6 L Hct 24.0 L 22.1 L MCV 88 MCH 30.4 MCHC 34.4 RDW 16.5 H Plt Count 209 MPV 9.2 Sodium 143 Potassium 3.2 L Chloride 113 H Carbon Dioxide 23.1 Anion Gap 6.9 BUN 13 Creatinine 0.6 Est GFR (CKD-EPI 2020) 92.97 Glucose 130 H Calcium 7.6 L Magnesium 2.1 Carcinoembryonic Ag 1.7 CA 19-9 Antigen 22 CA 125 Antigen 30 H Time Spent with Patient Time Spent with Patient: >50 minutes Time was spent: preparing to see the patient(eg.review tests), obtaining and/or reviewing separately otained hiistory, ordering medications,tests, procedures, referring, communicating with other health foster care social worker, indepentently interpreting results, counseling the patient and care coordination
[2024-12-14] MEDS: Lactated Ringers 500 ML IV (14:13)
[2024-12-14] MEDS: Norepinephrine in D5W 8 MG/250 ML BAG 3.75 MG IV (14:20)
--- NOTE | 2024-12-14 15:14 | PT.INNT ---
PT Notes Visit Reasons: Pneumonia pt deferred from therapy this afternoon as per nurse request, pt on vasopressor and just got back from endoscopy/colonoscopy with low BP. will try tomorrow to see if pt condition improves.
[2024-12-14] MEDS: POTASSIUM CHLORIDE 20 MEQ/100 ML BAG 50 MEQ IV_INF (15:47)
[2024-12-14] MEDS: Sucralfate 1 GM TAB PO ×2 (15:48→20:56)
[2024-12-14] MEDS: cefTRIAXone 2 GM/50 ML BAG IVPB (16:04)
--- NOTE | 2024-12-14 16:17 | COLE_ITS ---
Date of service: 12/14/24 Time of Service: 13:00 Colonoscopy Report Date of procedure: 12/14/24 Pre-op diagnosis general: Anemia, Melena, History of gastric bypass surgery Post-op diagnosis procedure note: other (Anemia, melena) Procedure: Colonoscopy Anesthesia Type: MAC Complications: None Indications: 74-year-old female admitted with severe anemia, melena, and hypotension. Upper and lower endoscopy were indicated. EGD performed on same day showed both duodenal and gastric ulcer. Colonoscopy was completed as a part of the complete evaluation. Prep: Miralax/Dulcolax Procedure Description: The patient was placed in left lateral decubitus position on the procedure table. A lubricated colonoscope was inserted through the anus and passed to the ascending colon. The scope was then slowly withdrawn and the colonic and rectal mucosa examined. Cecum could not be intubated due to looping of the endoscope. Abdominal counterpressure was attempted and not successful. There are no colon or rectal mass lesions, polyps, AVMs. There is no i nflammatory change. No diverticulosis was seen. Post operative changes of probable sigmoidectomy were noted at approximately 10cm from the anal verge. There is evidence of a side to side type colorectal anastomosis that is patent. Uncomplicated internal hemorrhoids present. Assessment and plan; Normal colonoscopy with postoperative changes of sigmoidectomy. Unremarkable for a cause for the anemia and melena. EGD done same session shows large duodenal and gastric ulcers. See EGD report for details. Next colonoscopy due in 5 years based on patients stated history of colon cancer.
--- NOTE | 2024-12-14 16:23 | W.PM.ENDDOP ---
Date of service: 12/14/24 Time of Service: 12:30 Endoscopy Report DATE OF PROCEDURE: 12/14/24 PRE-OP DIAGNOSIS: Anemia, melena, history of gastric bypass POST-OP DIAGNOSIS: other (gastric ulcer, duodenal ulcer. No gastric bypass found. Post-operative changes of prior gastric surgery, not a gastric bypass) PROCEDURE: EGD with biopsy SURGEON: Uma Toledo ANESTHESIA TYPE: MAC ESTIMATED BLOOD LOSS: 5 PATHOLOGY: other (1. Antrum. 2. Gastric ulcer) COMPLICATIONS: None INDICATIONS: 74-year-old female admitted for symptomatic anemia with melena. She had a reported history of gastric bypass surgery. EGD and colonoscopy were planned for complete evaluation PROCEDURE DESCRIPTION: The endoscope was passed through a bite block into the second portion of the duodenum. The endoscope was withdrawn and the mucosa examined. In the duodenal bulb there was a large shallow ulcer with exudate in its base. It encompassed 1/3 the circumference of the duodenal bulb. There was a small 7 mm area of adherent clot present but no other stigmata of recent bleeding. There was evidence of duodenitis surrounding the ulcer in the duodenal bulb. There was no evidence of malignancy. The pylorus was patent. There was evidence of gastritis in the antrum. There were no erosions in the antrum. The degree of gastritis was mild to moderate. There was a 1.5 cm open ulcer in the antrum near the pylorus. The ulcer had rolled edges and white exudate in its base. There was no adherent clot or visible vessel. There was no stigmata of recent bleeding. There was no old or fresh blood visualized in the stomach or the duodenum to suggest recent bleeding. Cold forceps biopsy was obtained from the antrum for Helicobacter pylori testing. Cold forceps biopsy was obtained from the ulcer edge to rule out malignancy. The gastric cardia and fundus appeared to have postoperative changes that were indistinct. There is no evidence of gastric bypass surgery as there is continuity of the esophagus to the fundus in the antrum. There is evidence of possible prior fundoplication though this cannot be confirmed. The gastroesophageal junction and Z-line are irregular and present at 36 cm from the teeth. No nodules and no varices were seen. The esophagus was examined and there were no abnormalities. Assessment and plan: Gastric and duodenal ulcers identified as the most likely cause for her melena and acute symptomatic anemia. There is no evidence of active bleeding. I recommend continuing Protonix 40 mg twice daily. I recommend Carafate with meals and at night. I recommend a full liquid diet. If there is evidence of rebleeding, I would recommend starting a pantoprazole drip. The most likely cause of peptic ulcers in multiple locations like this is NSAID associated peptic ulcer disease. I recommend she discontinue her heavy ibuprofen use. Avoid NSAIDs is much as possible. She will need to see her primary care physician as outpatient to determine an alternative plan of care for her chronic pain. Check hemoglobin with CBC in the morning, or sooner if acute bleeding recurs.
--- NOTE | 2024-12-14 17:03 | PDOC.CMPRO ---
Date of service: 12/14/24 Time of Service: 17:03 Care Management Progress Note Progress Note Text Progress Note Text: Kira was sitting on the edge of the bed when CM met with her this morning before her EGD and colonoscopy today. She was in good spirits. Her test showed duodenal and gastric ulcers that were no longer bleeding. After her testing, CM met with Kira again. She was feeling pretty wiped out, but was still in good spirits. Discharge Potential Discharge Needs: PCP F/U Appt Anticipated Barriers to Discharge: None Identified Patient/Family Education Needs: Review discharge instructions, discuss Ask Me Three Transportation: Private vehicle (vs RCT) Plan: Anticipate that Kira will discharge once medically stable, with no new services, although HH PT is recommended. CM will check in with her again prior to discharge about this. She will f/u with her PCP, urology (due to new hematuria), and possibly the surgeon. She will transport home in a private vehicle and continue per her plan of care. CM will continue to follow. Social Determinants of Health Screening Will the Patient Participate in the Screening?: Unable to obtain
[2024-12-14] MEDS: Normal Saline Flush 10 ML SYR IVP (20:56)
[2024-12-14] MEDS: Patch Removal LIDOCAINE 1 EACH TP (22:44)
[2024-12-15] VITALS (36 sets, daily range): BP systolic 104–152; BP diastolic 51–111; PULSE 66–92; RESP 0–27; TEMP 36.5
[2024-12-15] MEDS: DOXYCYCLINE 100 MG in Normal Saline 100 ML IVPB ×2 (02:27→14:07)
[2024-12-15] MEDS: DEXTROSE 5%-LACTATED RINGERS 1,000 ML 125 ML IV (02:42)
[2024-12-15 06:49] LABS: HCT 22.8 % (36.0-46.0); HGB 7.5 g/dL (11.2-15.7); MCH 29.6 pg (27.0-33.0); MCHC 32.9 % (32.0-36.0); MCV 90 fL (80-95); MPV 9.3 fL (8.0-11.0); Platelet Count 171 10^3/uL (130-400); RBC 2.53 10^6/uL (3.93-5.22); RDW 18.0 % (11.7-14.6); RDW-SD 54.4 fL; WBC 12.47 10^3/uL (4.4-10.8)
[2024-12-15 07:11] LABS: Anion Gap 7.2 mmol/L (3-11); BUN 10 mg/dL (7-18); CO2 20.8 mmol/L (21.0-32.0); Calcium 7.5 mg/dL (8.5-10.1); Chloride 111 mmol/L (98-107); Estimated GFR 92.97 (mL/min/1.73m2); Glucose 115 mg/dL (74-106); Potassium 3.4 mmol/L (3.5-5.1); Sodium 139 mmol/L (136-145)
[2024-12-15] MEDS: Calcium Carbonate *TUMS* 500 MG CHEW CH (09:17)
[2024-12-15] MEDS: Multivitamin TAB 1 TAB PO (09:17)
[2024-12-15] MEDS: Pantoprazole 40 MG VIAL IVP (09:17)
[2024-12-15] MEDS: Cholecalciferol (Vitamin D3) 1,000 UNIT TAB 1000 UNITS PO (09:17)
[2024-12-15] MEDS: Cyanocobalamin 500 MCG TAB 1000 MCG PO (09:18)
[2024-12-15] MEDS: Sucralfate 1 GM TAB PO ×3 (09:18→17:25)
--- NOTE | 2024-12-15 11:54 | PTTR_ITS ---
PT Notes Visit Reasons: Pneumonia Date: 12/15/2024 PRECAUTIONS: Standard Fall. Activity as tolerated. SUBJECTIVE: Pt sitting on the EOB when approached for therapy this morning, pt reports she would like to participate with therapy as soon as she gets done with morning grooming and change of clothes. Pt seen again in the afternoon and was agreeable to participating with therapy. OBJECTIVE: ? PAIN: none reported VITALS: Monitored by nursing in ICU ? Therapeutic Activities 51081: Direct one-on-one instruction in dynamic activities to improve functional performance. ?? BED MOBILITY/TRANSFERS? Rolling L/R: independent Supine-sit: independent ? Sit-supine: ? independent? Sit-stand: ? ?independent ? Stand-sit: ?? independent? Bed-Chair:? ?independent ? Chair-bed: independent Provided skilled cues and instruction on performance and technique throughout. Gait Training [id number]: Direct one-on-one instruction and skilled instruction in: Movement sequencing Turning and movement with proper form Provided instruction in gait pattern Patient education regarding pacing and breathing techniques to maximize activity tolerance? GAIT? Assistive Device: ??none ? Weight bearing: FWB Assist: ? SBA? Distance:?? ?300'x2 seated rest break in between distances (am), 300'x 1seated rest break in between distances ? Deviation: ? unremarkable? STAIRS:? ?4 x3, 6x2 ?no handrails SBA step over step ? ASSESSMENT:?Pt tolerated activity well, slight sob on fatigue with increased BP, able to go back to baseline after resting, deep breathing exercises to help with SOB. PLAN: Continue with balance training, global strengthening and general conditioning for improved safety, mobility and activity tolerance until pt is ready for DC. TREATMENT CODE/TIME: [id number] 20mins (10:00-10:20 am) [id number] 15mins (1:30- 1:45pm)
[2024-12-15] MEDS: Lidocaine 5% Patch 2 PATCH TP (12:08)
[2024-12-15] MEDS: Normal Saline Flush 10 ML SYR IVP (12:09)
--- NOTE | 2024-12-15 14:19 | PDOC.CMPRO ---
Date of service: 12/15/24 Time of Service: 14:19 Care Management Progress Note Progress Note Text Progress Note Text: Kira was sitting on the edge of the bed when CM met with her today. She was very pleasant and offered a big smile. Kira is hoping to go home today, but she is requiring more testing from gynecology. There is no scheduled time for that testing, but she should not have to wait around for results, so hopefully she will discharge later today. She stated that she will have a ride home, no matter what the time, but she sure is getting eager to go home. JW again discussed with Kira services. She declined. She stated that she has some good supports and does not need any additional supports at this time. Discharge Potential Discharge Needs: Consult Consult Services Needed: Other (gynecology) and Imaging/labs (pelvic imaging) Anticipated Barriers to Discharge: None Identified Patient/Family Education Needs: Review discharge instructions, discuss Ask Me Three Transportation: Private vehicle Plan: Anticipate that Kira will discharge with no new services. She will f/u with her PCP , likely gynecology, and urology is recommended due to new hematuria. She will transport home in a private vehicle and continue per her plan of care. CM will continue to follow. Social Determinants of Health Screening Will the Patient Participate in the Screening?: Unable to obtain
--- NOTE | 2024-12-15 17:52 | W.PM.DS.N ---
Date of service: 12/15/24 Time of Service: 17:52 DS: Diagnosis Discharge Diagnosis (1) Hypotension: Status: Acute (2) GI bleeding: Status: Chronic (3) Anemia: Status: Chronic (4) Pneumonia: Status: Acute (5) Hypokalemia: Status: Inactive (6) Hematuria: Status: Acute (7) Tobacco abuse: Status: Acute (8) Weight loss, non-intentional: Status: Acute Discharge Plan Disposition Patient Disposition: Home Condition: Stable Discharge Details Reason For Visit: Pneumonia Admit Date/Time: 12/11/24 00:06 Admit Provider: Nahid Camacho Attending Provider: Nahid Camacho Primary Care Provider: Ran Champion Hospital Course Hospital Course: This is a 74-year-old female who was admitted on the with concerns for pneumonia. While she was here she completed a 5-day course of antibiotics. Patient was also treated for hyperkalemia which resolved. She was noted to have hematuria and screening labs were done with a positive CA-125. I did reach out to [facility] but prior to the patient being seen she wanted to go home today. Patient wanted to follow-up in the outpatient setting. As her vital signs are stable I agreed that this will be although not ideal it is appropriate. In regards to her diagnostic data she was noted to have anemia but not to the point of needing transfusion. She had mild leukocytosis that is improving. Potassium was noted to be mildly creased as well at discharge was 3.4 so this will be supplemented. Phosphorus was less than 2 will need outpatient workup. Iron was 80 which is low normal. In regards to imaging an echocardiogram was performed that showed an EF of 61%. Chest abdomen pelvis CT done on admission showed bilateral tree-in-bud opacities and atrophic pancreas and some reactive LAD. While she was here she was also seen in consultation with surgery for her anemia she was diagnosed with peptic ulcers and the recommendation was to continue with PPI as well as Carafate. Patient is already on PPI and I have written a prescription for Carafate. Recommendations for Follow Up Recommended tests to be ordered by follow up provider: endoscopy samples Home Meds and New Rx's Prescriptions: New sucralfate 1 gram Tablet 1 g PO AC & HS 30 Days Qty: 120 0RF Continued hydrocodone-acetaminophen 10-325 mg tablet 1 tab PO Q6H PRN Patient Comments: TAKE 1 TABLET BY MOUTH EVERY 4-6 HOURS FOR SEVERE PAIN, DO NOT EXCEED 5 TABLETS/DAY. MINIMIZE USE multivitamin [Daily Multi-Vitamin] Tablet 1 tab PO DAILY cyanocobalamin (vitamin B-12) 1,000 mcg capsule 1,000 mcg PO DAILY calcium carbonate [Calcium 500] 500 mg calcium (1,250 mg) tablet,chewable 500 mg PO DAILY cholecalciferol (vitamin D3) 25 mcg (1,000 unit) tablet 1,000 unit PO DAILY pantoprazole 40 mg tablet,delayed release (DR/EC) 40 mg PO DAILY potassium chloride 20 mEq packet 20 meq PO DAILY Qty: 3 0RF Discharge Instructions Referrals: Ran Champion MD [Primary Care Provider, Medicine] Sandra Cedillo DO [OSTEOPATHIC DOCTOR, Obstetrics] Referral Note: follow up in 5-7 days Activity:: Activity as Tolerated Equipment/Supplies:: No Equipment Needed Diet:: As Tolerated Discharge Orders Discharge Orders: Discharge Order (Routine); Ordered 12/15/24 Ordered By: Nahid Camacho DS: Summary Time Spent with Patient providing and/or coordinating discharge services: Greater than 30 minutes Status at Discharge Functional status at discharge: independent ambulation Overall status at discharge: patient is back to baseline Mental Status: mental status grossly normal Speech and Movement: speech and movement normal Mood: congruent mood Affect: normal affect Exam Narrative Exam Narrative: GEN: Alert and oriented x 3, though slow to respond at times. No acute distress Cardiovascular-RRR, no murmur Pulm- Normal effort, lungs somewhat deminised diffusesly, but CTAB without wheeze or rales Abdomen- soft, +BS, NT/ND with no masses. Extremities-no cyanosis clubbing or edema Psych Mental Status: mental status grossly normal Speech and Movement: speech and movement normal Mood: congruent mood Affect: normal affect DS: Data Vitals/I&O Vitals and I&O: Vital Signs Temperature 36.5 C 12/15/24 12:00 Temperature Source Temporal Artery Scan 12/15/24 12:00 Pulse 72 12/15/24 00:46 Pulse Rhythm Regular 12/11/24 01:34 Pulse Strength Normal 12/11/24 00:26 Pulse 72 12/15/24 00:46 Respiratory Rate 22 12/15/24 00:46 Respiratory Effort Non-Labored 12/11/24 11:40 Respiratory Depth Normal 12/11/24 11:40 Respiratory Pattern Tachypnea 12/11/24 11:40 Blood Pressure 109/53 L 12/15/24 00:46 Blood Pressure Mean 70 12/15/24 00:46 Blood Pressure Position Supine 12/11/24 11:40 Pulse Oximetry 95 12/14/24 23:01 Oxygen Delivery Method Room Air 12/15/24 08:35 Oxygen Flow Rate 0 12/15/24 08:35 Pain Level 0 12/14/24 22:59 Comment BP cuff on L ankle 12/13/24 11:47 Intake & Output 12/14/24 12/15/24 12/15/24 23:59 11:59 23:59 Intake Total 2458.167 / 4641.500 2229.167 / 2689.167 460 / 2689.167 Output Total 655 / 1355 Balance 1803.167 / 3286.500 2229.167 / 2689.167 460 / 2689.167 Weight 53.7 kg Intake: IV 2108.167 / 3291.500 2079.167 / 2179.167 100 / 2179.167 Oral 350 / 1350 150 / 510 360 / 510 Output: Urine 625 / 1325 Stool Other: Urine Color Yellow Urine Appearance Clear Urine Odor Normal Comment total 325ml urine and stool, more urine than stool. Stool Characteristics Liquid Data Completed and Pending Labs on day of discharge: Labs from last 24 hours 12/15/24 05:55 WBC 12.47 H RBC 2.53 L Hgb 7.5 L Hct 22.8 L MCV 90 MCH 29.6 MCHC 32.9 RDW 18.0 H Plt Count 171 MPV 9.3 Sodium 139 Potassium 3.4 L Chloride 111 H Carbon Dioxide 20.8 L Anion Gap 7.2 BUN 10 Creatinine 0.6 Est GFR (CKD-EPI 2020) 92.97 Glucose 115 H Calcium 7.5 L Phosphorus < 2.0 L Preliminary micro results at discharge 12/10/24 21:35 Blood Blood Culture - Preliminary NO GROWTH 96 HOURS 12/10/24 21:25 Blood Blood Culture - Preliminary NO GROWTH 96 HOURS PFSH All Active Problems (Updated 12/14/24 @ 00:03 by LIT JOSHI) NSAID long-term use (Acute) Status following gastric bypass for weight loss (Acute) Hypotension (Acute) GI bleeding (Chronic) Weight loss, non-intentional (Acute) COPD (chronic obstructive pulmonary disease) (Chronic) Tobacco abuse (Acute) Anemia (Chronic) Elevated BUN (Acute) Hematuria (Acute) Hypokalemia (Acute) Respiratory failure (Acute) Pneumonia (Acute) Social History Smoking/Tobacco Use Status: Current every day Tobacco Type: cigarettes Smoking risk assessment performed?: Yes Alcohol Intake: current Alcohol Intake frequency: 3 or more drinks per day Drug use: Daily Substance use type: marijuana Housing: apartment Do you feel safe at home: Yes Do you feel safe in your relationship?: Yes Time Spent with Patient Time Spent with Patient: <45 minutes Time was spent: preparing to see the patient(eg.review tests), obtaining and/or reviewing separately otained hiistory, ordering medications,tests, procedures, referring, communicating with other health family member caretaker, indepentently interpreting results, counseling the patient and care coordination
--- NOTE | 2024-12-15 18:30 | W.OBCONSULT ---
Date of service: 12/15/24 Time of Service: 18:30 Assessment and Plan Assessment and plan (1) Elevated CA-125: Status: Acute Assessment and plan: 74 yo G0 with elevated CA-125 - H/O COPD, gastric and duodenal ulcers - H/O both colon CA as well as right sided breast CA - H/O gastric bypass (reportedly reversed in her 40's due to electrolyte imbalances?) - BMI 21 - Currently sexually active - Not sexually active - Denies any h/o abnormal pap smears - Denies any bleeding since menopause (age 48) - Family history reportedly notable for colon cancer; mother with colon cancer - - - - - - - - - - - - 12/15/2024 (Nguyen): Patient presented on 12/11/2024 for extreme fatigue. She was incidentally noted to have severe anemia as well as an elevated CA125 among other things. Patient has no known gynecological history and no recent bleeding to raise suspicion for pelvic mass. She does report a history of, uterine cyst, however, I am and able to uncover any additional information regarding this history. Ms. Monge is appreciated in her workup to have several potential reasons for explaining her severe anemia as well as any potential concerns for cancer. From a gynecological perspective, it will be important to decipher whether the reported hematuria is from the bladder or vagina; of note, testing for hematuria a month ago found only 0-2 RBCs within her urine, or as most recent testing on -. I offered to perform a pelvic exam on Ms. Monge, but she declines and expresses interest in outpatient follow-up. She has not been sexually active in several years, and the likelihood for notable vaginal atrophy is high. She has a recent CT scan that notes unremarkable pelvic structures. Ms. Monge states that she does have transportation to and from visits, and she feels she will be able to follow-up outpatient. We discussed plans for in a pelvic exam with possible straight cath to confirm source of hematuria; pending this evaluation, will consider need for transvaginal ultrasound. Message sent to staff to have patient scheduled. - - - - - - - - - - - - History of Present Illness Narrative: Thank you for inviting us to participate in the care of this patient. Ms. Monge is a 74 yo G0 (unintentional) who presented to the hospital 12/11/2024 for concerns surrounding excessive fatigue. As part of her workup, which has notably revealed lung changes / nodularity, severe anemia, and both a gastric as well as duodenal ulcer, she was noted to have a Ca-125 of 30. CA125 is drawn as part of routine screening for potential causes of cancer given the patient's reported weight loss in the above setting. She reports both a history of primary colon cancer as well as primary breast cancer. Ms. Monge reports menopause as of the age of 48 and states she has had no bleeding since this time. She denies any history of abnormal Pap smears. She is uncertain of her gynecological history citing a, uterine cyst, of an appreciable size (patient indicates approximately 10 cm by hand gesture when speaking of it) which was reportedly surgically resected; I am unable to discern if this was truly a uterine cyst or if this was actually an ovarian cyst. She otherwise denies any known history of gynecological issues. She denies any historical use of HRT. She reports a history of infertility of unknown cause, and is uncertain of the workup that was done for this. Ms. Monge does recount a concerning family history of colon cancer along her mother side of the family. Her mother herself reportedly had colon cancer, and the patient herself reports having undergone a surgical resection for colon cancer. She also recalls a primary diagnosis of breast cancer in her 60s for which she states she had a full unilateral right mastectomy with lymph node resection followed by radiation. Ms. Monge states that she has been a smoker for several years. She is not sexually active, and her sexual partner of unspecified cancer in 2019. She denies any suspicious changes in her weight or appetite outside of an acute decrease in her appetite over the last couple weeks when she has been severely fatigued. She denies nausea/vomiting, urinary issues, or vaginal discharge. Review of Systems All systems reviewed & are unremarkable except as noted in HPI and below PFSH All Active Problems (Updated 12/15/24 @ 19:03 by Sandra Cedillo DO) Elevated CA-125 (Acute) NSAID long-term use (Acute) Status following gastric bypass for weight loss (Acute) Hypotension (Acute) GI bleeding (Chronic) Weight loss, non-intentional (Acute) COPD (chronic obstructive pulmonary disease) (Chronic) Tobacco abuse (Acute) Anemia (Chronic) Elevated BUN (Acute) Hematuria (Acute) Hypokalemia (Acute) Respiratory failure (Acute) Pneumonia (Acute) Social History Smoking/Tobacco Use Status: Current every day Tobacco Type: cigarettes Smoking risk assessment performed?: Yes Alcohol Intake: current Alcohol Intake frequency: 3 or more drinks per day Drug use: Daily Substance use type: marijuana Housing: apartment Do you feel safe at home: Yes Do you feel safe in your relationship?: Yes Exam Const General: cooperative and healthy appearing Nutritional Appearance: well nourished Orientation: alert and awake HENAK Head: normocephalic Resp Effort & Inspection: normal respiratory effort GI Other: Soft, nondistended; long vertical midline incision scar extending from sternum to suprapubic region appreciated. No overtly palpable masses across the abdomen or tenderness. Exam is somewhat limited by patient position, but there are no overtly palpable inguinal lymph nodes. Other: Declines Skin General skin exam: no rashes or lesions noted Neuro General: patient alert and patient awake Extrem General: normal to inspection Psych Appearance: well kempt Mental Status: mental status grossly normal Affect: normal affect Results Last Vital Signs Temp 97.7 F 12/15/24 12:00 Pulse 72 12/15/24 00:46 Resp 22 12/15/24 00:46 BP 109/53 L 12/15/24 00:46 Pulse Ox 95 12/14/24 23:01 Labs 12/15/24 05:55 12/15/24 05:55 Labs: Laboratory Results - last 24 hr 12/15/24 05:55 WBC 12.47 H RBC 2.53 L Hgb 7.5 L Hct 22.8 L MCV 90 MCH 29.6 MCHC 32.9 RDW 18.0 H Plt Count 171 MPV 9.3 Sodium 139 Potassium 3.4 L Chloride 111 H Carbon Dioxide 20.8 L Anion Gap 7.2 BUN 10 Creatinine 0.6 Est GFR (CKD-EPI 2020) 92.97 Glucose 115 H Calcium 7.5 L Phosphorus < 2.0 L 12/11/2024 CA-125: [address] scan - chest: other (Bilateral tree-in-bud opacities; 5 mm right upper lobe nodule) CT scan - pelvis: other (Unremarkable for age) Abdominal ultrasound report/results: other (see report)
== END 2024-12-15 19:13 | disposition home or self-care (01) | DRG 377 ==
LOC: ER 12-11 00:19 → MS 12-11 00:55 → ICU 12-11 11:57
PROVIDERS: Nurse Practitioner Acute Care; Surgery; Admitting Provider Hospitalist; Emergency Provider Physician Assistant; PCP Family Medicine; Responsible Provider Family Medicine; Visit Provider Hospitalist
PROC: 0DJD8ZZ Inspection of Lower Intestinal Tract, Via Natural or Artificial Opening Endoscopic (ICD-10-PCS; CPT 45378; principal; 2024-12-14 12:00)
DX: J18.9 Pneumonia, unspecified organism (principal); J44.0 Chronic obstructive pulmonary disease with (acute) lower respiratory infection; E87.6 Hypokalemia; R31.9 Hematuria, unspecified; F17.210 Nicotine dependence, cigarettes, uncomplicated; R63.4 Abnormal weight loss; Z68.21 Body mass index [BMI] 21.0-21.9, adult; Z79.1 Long term (current) use of non-steroidal anti-inflammatories (NSAID); R97.1 Elevated cancer antigen 125 [CA 125]; K25.4 Chronic or unspecified gastric ulcer with hemorrhage; R57.8 Other shock; E87.20 Acidosis, unspecified; D62 Acute posthemorrhagic anemia; K26.4 Chronic or unspecified duodenal ulcer with hemorrhage; T39.395A Adverse effect of other nonsteroidal anti-inflammatory drugs [NSAID], initial encounter; R53.1 Weakness; R47.81 Slurred speech; Z79.899 Other long term (current) drug therapy; G89.29 Other chronic pain; Z98.0 Intestinal bypass and anastomosis status; R91.1 Solitary pulmonary nodule; Z85.3 Personal history of malignant neoplasm of breast; Z85.038 Personal history of other malignant neoplasm of large intestine; F12.90 Cannabis use, unspecified, uncomplicated
CPT/HCPCS: 36410; 45378; 43239; 00123; 36415; 36430; 36592; 74177; 80048; 80053; 82306; 82550; 84145; 85027; 86304; 86850; 86900; 86901; 86920; 87040; 87637; 88305; 93005; 94640; 94761; 96361; 96365; 96366; 96367; 96368; 96375; 97162; 97530; 99222; 99231; 99291; J1650; 71260; 81003; 81015; 82270; 82272; 82378; 82607; 83540; 83550; 83605; 83735; 84100; 84132; 84443; 84484; 85014; 85018; 85025; 85610; 86301; 88361; 93010; 93306; 94760; 99223; 99232; 99233; 99239; J0131; J0696; J2003; J2371; J2405; J2470; J2704; J2919; J3475; J3480; J3490; J7620; P9016

== ENCOUNTER 2024-12-19 13:13 | Emergency (ER) | payer MEDICARE, MEDICAID, SELFPAY ==
[2024-12-19 13:14] VITALS: BP 121/69; PULSE 92; RESP 16; TEMP 37.1; O2SAT 93
[2024-12-19 14:39] VITALS: BP 115/62; PULSE 73; RESP 17; O2SAT 92
--- NOTE | 2024-12-19 15:15 | DI.US_ITS ---
Exam(s) US UPPER EXTREMITY VENOUS LT EXAM: US UPPER EXTREMITY VENOUS LT CLINICAL HISTORY: edema after IV placement TECHNIQUE: GRAYSCALE, COLOR, DOPPLER IMAGING OF THE VENOUS SYSTEM OF THE UPPER EXTREMITY-BILATERAL COMPARISON: None. FINDINGS: This is an abnormal-positive study. There is intraluminal thrombus starting slightly above the wrist in the cephalic vein at this level and extending in continuous fashion up the forearm through the entire medial cubital vein and in continuous fashion into the basal vein, through the entire length of the basilar vein up to its junction with the axillary vein. The axillary vein itself is patent. There is no evidence of thrombus within the brachial vein nor within the cephalic vein in the upper arm. IMPRESSION: 1. Abnormal-positive study the presence of a long continuous intraluminal thrombus extending from just above the wrist all the way to the axilla involving veins described above. The most cephalad aspect of the clot is in the upper basilar vein at its junction with the axillary vein. Length of this clot is over 25 cm. This patient is at significant risk for pulmonary embolus.. Report called by myself to ER physician on 12/19/2024 at 4:29 p.m. DATA REPOSITORY:
--- NOTE | 2024-12-19 15:31 | W.ED.GENAD ---
Discharge Plan Disposition Patient Disposition: Home Condition: Stable Discharge Details Clinical Impression: DVT (deep venous thrombosis), Edema, peripheral Primary Care Provider: Ran Champion ED Provider: Urszula Castellano Home Meds and New Rx's Prescriptions: New enoxaparin [Lovenox] 40 mg/0.4 mL syringe 40 mg subcut Q12H 7 Days Qty: 5.6 0RF furosemide [Lasix] 20 mg tablet 20 mg PO DAILY Qty: 3 0RF No Action hydrocodone-acetaminophen 10-325 mg tablet 1 tab PO Q6H PRN Patient Comments: TAKE 1 TABLET BY MOUTH EVERY 4-6 HOURS FOR SEVERE PAIN, DO NOT EXCEED 5 TABLETS/DAY. MINIMIZE USE sucralfate 1 gram Tablet 1 g PO AC & HS 30 Days Qty: 120 0RF multivitamin [Daily Multi-Vitamin] Tablet 1 tab PO DAILY cyanocobalamin (vitamin B-12) 1,000 mcg capsule 1,000 mcg PO DAILY calcium carbonate [Calcium 500] 500 mg calcium (1,250 mg) tablet,chewable 500 mg PO DAILY cholecalciferol (vitamin D3) 25 mcg (1,000 unit) tablet 1,000 unit PO DAILY pantoprazole 40 mg tablet,delayed release (DR/EC) 40 mg PO DAILY potassium chloride 20 mEq packet 20 meq PO DAILY Qty: 3 0RF Discharge Instructions Instructions: Swelling, Deep Vein Thrombosis (DVT) ED Additional Instructions: I have sent a prescription for the blood thinner shot to your pharmacy. Please use this as prescribed. I have also sent a prescription for a diuretic to the pharmacy that you are to take for the next 3 days. Please call your PCP's office in the morning to make an appoint and as discussed, have a low threshold to return to the Emergency Department with any worsening symptoms or any concerns for anemia, blood loss, chest pain, shortness of breath, etc. Discharge Data Discharge Date/Time-TO BE ENTERED AT DEPARTURE: 12/19/24 18:15 HPI General Date/Time Provider Initiated Documentation: 12/19/24 14:34. HPI Narrative: The patient is pleasant 74-year-old female with recent hospitalization for pneumonia, anemia who comes emergency department for swelling to both of her legs and left upper extremity. History is obtained from the patient and family who reports that she developed swelling to her legs the day after she was discharged. Reports that she had also noted swelling to her left upper arm around the same time. Reports that she had IV access in her left upper arm. Reports it seems to be more pronounced in the morning and better as the day progresses but in regards to her legs she has since developed blistering to her foot and her toes are starting to look discolored. Reports that she otherwise feels well. Denies any shortness of breath with this. Denies any cough. Denies fevers or chills. Denies chest pain. Reports she has never had swelling to her arms or legs before. Reports she has been taking [id number] diuretic which is not helping so finally came to the emergency department for an evaluation. Reports that her last arm does not feel swollen now. Reports she is not having any pain to her arms or legs either. She denies history of similar type problems in the past. Related Data Home Medications ?Medication ?Instructions ?Recorded ?Confirmed calcium carbonate (Calcium 500) 500 mg PO DAILY 11/13/24 12/19/24 cholecalciferol (vitamin D3) 25 1,000 unit PO DAILY 11/13/24 12/19/24 mcg (1,000 unit) tablet cyanocobalamin (vitamin B-12) 1,000 mcg PO DAILY 11/13/24 12/19/24 1,000 mcg capsule multivitamin (Daily Multi-Vitamin 1 tab PO DAILY 11/13/24 12/19/24 tablet) pantoprazole 40 mg tablet,delayed 40 mg PO DAILY 11/13/24 12/19/24 release potassium chloride 20 mEq oral 20 meq PO DAILY #3 ea 11/13/24 12/19/24 packet hydrocodone 10 mg-acetaminophen 1 tab PO Q6H PRN 12/14/24 12/19/24 325 mg tablet sucralfate 1 gram tablet 1 g PO AC & HS 30 days #120 tabs 12/15/24 12/19/24 enoxaparin 40 mg/0.4 mL 40 mg (0.4 mL) subcut Q12H 7 days 12/19/24 subcutaneous syringe (Lovenox) #5.6 mL furosemide 20 mg tablet (Lasix) 20 mg PO DAILY #3 tabs 12/19/24 Previous Rx's ?Medication ?Instructions ?Recorded potassium chloride 20 mEq oral 20 meq PO DAILY #3 ea 11/13/24 packet sucralfate 1 gram tablet 1 g PO AC & HS 30 days #120 tabs 12/15/24 enoxaparin 40 mg/0.4 mL 40 mg (0.4 mL) subcut Q12H 7 days 12/19/24 subcutaneous syringe (Lovenox) #5.6 mL furosemide 20 mg tablet (Lasix) 20 mg PO DAILY #3 tabs 12/19/24 Allergies Allergy/AdvReac Type Severity Reaction Status Date / Time omeprazole Allergy Severe Dizziness/L Verified 12/10/24 19:21 ighthead procaine (From Novocain) Allergy Severe Anaphylaxis Verified 12/10/24 19:21 morphine AdvReac Intermediate Psychosis Verified 12/10/24 19:21 General Stated Complaint: Vascular VICTOR HUGO: 3 Review of Systems Narrative: Review of systems are negative except as mentioned. Exam Narrative Exam Narrative: General appearance: The patient is alert, has no immediate need for airway protection and no signs of toxicity. Respiratory: There are no retractions. The patient has coarse lung sounds bilaterally with mild wheezes which patient reports is baseline for her. Cardiovascular: Regular in rate and rhythm. Radial pulses are intact and equal. Gastrointestinal: The abdomen is soft and nondistended with normal bowel sounds. Nontender to palpation throughout. Neurological: The patient is alert, awake and oriented x 3. Skin: The patient has blistering to the dorsum of the right foot without overlying erythema or increased warmth to touch. She has skin bleeding also on the right mai with clear drainage. Extremities: The patient has symmetric lower extremity edema to bilateral legs down to the feet. She has some calf tenderness with the palpation bilaterally. The patient is equal dorsalis pedis pulses. The patient has duskiness to the toes of both feet. The toes of both feet are nontender to palpation throughout. The feet are nontender to palpation throughout. No ankle or leg tenderness noted with palpation throughout the day. The patient's left upper extremity is not edematous. She has no upper extremity asymmetry. She has no tenderness palpation to the entire left upper extremity with equal radial pulses and equal sensation to bilateral upper extremities. Course Vital Signs Vital signs: Vital Signs Temperature 37.1 C 12/19/24 13:14 Pulse 92 H 12/19/24 13:14 Respiratory Rate 16 12/19/24 13:14 Blood Pressure 121/69 12/19/24 13:14 Pulse Oximetry 93 12/19/24 13:14 Temperature 37.1 C 12/19/24 13:14 Temperature Source Oral 12/19/24 13:14 Pulse 73 12/19/24 14:39 Respiratory Rate 17 12/19/24 14:39 Respiratory Effort Normal, Non-Labored 12/19/24 14:39 Respiratory Depth Normal 12/19/24 14:39 Respiratory Pattern Normal 12/19/24 14:39 Blood Pressure 115/62 12/19/24 14:39 Blood Pressure Mean 79 12/19/24 14:39 Blood Pressure Position Sitting 12/19/24 14:39 Pulse Oximetry 92 12/19/24 14:39 Oxygen Delivery Method Room Air 12/19/24 14:39 Oxygen Flow Rate 0 12/19/24 14:39 Pain Level 0 12/19/24 13:14 Medical Decision Making The patient was recently hospitalized last month for her initial finding of pneumonia and was found to be anemic. She had hide with fluid and antibiotics but the anemia did not require blood transfusion. She had an echocardiogram also in the hospital that showed ejection fraction in the 60s. The patient denies any chest pain shortness of breath and arrives hemodynamically stable. Will hold off on repeat blood work and imaging study of her legs suspecting peripheral edema secondary to increased fluid intake from recent hospitalization however I will order ultrasound study of her left upper extremity given recent IV access to the left upper extremity. The patient is going to wait. The patient's ultrasound study is back and is concerning for extensive DVT. I did speak with the radiologist regarding this and reported that the patient is at high risk for PE. It is reassuring that the patient is not complaining of chest pain or shortness of breath and is hemodynamically stable upon arrival. I had a long conversation with the patient and her son regarding this. I told her to treat blood clots she would need to be started on blood thinning medication however given recent history of anemia I would recommend repeating her blood work again. The patient was recently hospitalized and was found to be anemic and had extensive workup without any acute finding. The patient blood work is back. Her anemia has actually improved today. She continued to deny any known blood loss. Had a conversation again with the patient, her son and [id number] regarding workup results finding and need to start anticoagulation due to high risk for developing blood clots in her lungs which can lead to . They agreed to start the blood thinning medication. I told everyone in the family and the patient herself that she needs to have a low threshold to return to the emergency department should she develop any symptoms of PE which I explained, anemia which also I explained. Because of unknown cause of her anemia I told the patient and family of my recommendation of starting her on medication that can be easily reversed. Because I cannot start her on Coumadin just yet until she is to bridge she will first get Lovenox with a dose now and a prescription sent to her pharmacy. I did speak with the pharmacy regarding dosing and recommended 40 mg twice a day for the prefilled syringe. The patient will get a dose appropriate Lovenox in the emergency department prior to discharge. I asked that they follow-up with her primary care doctor by calling the office in the morning but again urged to have a very low threshold to return to the emergency department with any worsening symptoms or any other concerns. In regards to the edema to the legs the patient send wondered if I can just pop the blister and I told him this is not something I would recommend instead the patient will also get a prescription sent to her pharmacy for 3 days worth of furosemide. Since the patient recently had an echocardiogram and cardiac workup I will not repeat cardiac workup for this. If ultimately the swelling to her legs is due to blood clots to her legs the patient is not having any vascular compromise today. The Lovenox should help treat this also. Imaging Data Radiologic Study: Imaging: Ultrasound (Left upper extremity) Radiologist's impression: 1. Abnormal-positive study the presence of a long continuous intraluminal thrombus extending from just above the wrist all the way to the axilla involving veins described above. The most cephalad aspect of the clot is in the upper basilar vein at its junction with the axillary vein. Length of this clot is over 25 cm. This patient is at significant risk for pulmonary embolus. PFSH All Active Problems (Updated 12/19/24 @ 18:00 by Urszula Castellano DO) Edema, peripheral (Acute) DVT (deep venous thrombosis) (Chronic) Elevated CA-125 (Acute) NSAID long-term use (Acute) Status following gastric bypass for weight loss (Acute) Hypotension (Acute) GI bleeding (Chronic) Weight loss, non-intentional (Acute) COPD (chronic obstructive pulmonary disease) (Chronic) Tobacco abuse (Acute) Anemia (Chronic) Elevated BUN (Acute) Hematuria (Acute) Hypokalemia (Acute) Respiratory failure (Acute) Pneumonia (Acute) Social History Smoking/Tobacco Use Status: Current every day Tobacco Type: cigarettes Smoking risk assessment performed?: Yes Alcohol Intake: current Alcohol Intake frequency: 3 or more drinks per day Drug use: Daily Substance use type: marijuana Housing: apartment Do you feel safe at home: Yes Do you feel safe in your relationship?: Yes
[2024-12-19 16:45] VITALS: BP 147/86; PULSE 74; RESP 16; O2SAT 94
[2024-12-19 17:06] LABS: Abs Immature Grans 0.08 10^3/uL (0.0-0.06); HCT 29.6 % (36.0-46.0); HGB 9.6 g/dL (11.2-15.7); Immature Grans % 0.8 %; MCH 29.7 pg (27.0-33.0); MCHC 32.4 % (32.0-36.0); MCV 92 fL (80-95); RBC 3.23 10^6/uL (3.93-5.22); RDW 17.6 % (11.7-14.6); RDW-SD 58.3 fL; WBC 10.44 10^3/uL (4.4-10.8)
[2024-12-19 17:30] LABS: RBC Morphology Normal
[2024-12-19 17:34] LABS: Anion Gap 9.1 mmol/L (3-11); BUN 14 mg/dL (7-18); CO2 28.9 mmol/L (21.0-32.0); Calcium 8.9 mg/dL (8.5-10.1); Chloride 103 mmol/L (98-107); Estimated GFR 76.31 (mL/min/1.73m2); Glucose 122 mg/dL (74-106); Potassium 3.9 mmol/L (3.5-5.1); Sodium 141 mmol/L (136-145)
[2024-12-19] MEDS: Enoxaparin 60 MG/0.6 ML SYR 50 MG SC (18:06)
[2024-12-19 18:15] VITALS: BP 127/53; PULSE 88; RESP 16; O2SAT 96
== END 2024-12-19 18:15 | disposition home or self-care (01) ==
PROVIDERS: Emergency Provider Emergency Medicine; PCP Family Medicine
DX: R60.0 Localized edema (principal); I82.622 Acute embolism and thrombosis of deep veins of left upper extremity
CPT/HCPCS: 99284 ×2; 96372; 80048; 85025; 93971; J1650

== ENCOUNTER → 2025-03-24 09:27 | Outpatient (BNVA) | payer MEDICARE, MEDICAID, SELFPAY | PROVIDERS: PCP Family Medicine; Referring Provider Family Medicine; Visit Provider Surgery | DX: T39.395A Adverse effect of other nonsteroidal anti-inflammatory drugs [NSAID], initial encounter (principal); K26.9 Duodenal ulcer, unspecified as acute or chronic, without hemorrhage or perforation; Z79.01 Long term (current) use of anticoagulants | CPT/HCPCS: 99213 ==

== ENCOUNTER 2025-04-17 08:12 | Day surgery (SDC) | payer MEDICARE, MEDICAID, SELFPAY ==
--- NOTE | 2025-04-17 08:39 | W.ANESPRE ---
General Info Date of Service Date Performed: 04/17/25 Height: 5 ft 3 in Weight: 55.792 kg Body Mass Index (BMI): 21.7 Surgical Procedure: Operation Date: 04/17/25 09:20 Proposed Procedure Side Surgeon p Gastroscopy Uma Toledo MD Actual Procedure Side Surgeon p Gastroscopy Uma Toledo MD Pre-Op Diagnosis Post-Op Diagnosis (1) Gastric ulcer due to nonsteroidal anti-inflammatory drug (NSAID): (2) Duodenal ulcer due to nonsteroidal anti-inflammatory drug (NSAID): Meds Allergies and Home Medications Allergies Allergy/AdvReac Type Severity Reaction Status Date / Time omeprazole Allergy Severe Dizziness/L Verified 04/17/25 09:01 ighthead procaine (From Novocain) Allergy Severe Anaphylaxis Verified 04/17/25 09:01 morphine AdvReac Intermediate Psychosis Verified 04/17/25 09:01 Home Medication ?Medication ?Instructions ?Recorded calcium carbonate (Calcium 500) 500 mg PO DAILY 11/13/24 cholecalciferol (vitamin D3) 25 1,000 unit PO DAILY 11/13/24 mcg (1,000 unit) tablet cyanocobalamin (vitamin B-12) 1,000 mcg PO DAILY 11/13/24 1,000 mcg capsule multivitamin (Daily Multi-Vitamin 1 tab PO DAILY 11/13/24 tablet) pantoprazole 40 mg tablet,delayed 40 mg PO DAILY 11/13/24 release potassium chloride 20 mEq oral 20 meq PO DAILY #3 ea 11/13/24 packet hydrocodone 10 mg-acetaminophen 1 tab PO Q6H PRN 12/14/24 325 mg tablet furosemide 20 mg tablet (Lasix) 20 mg PO DAILY #3 tabs 12/19/24 Held on 04/11/25. Instructions: Pt Stopped/Never Started apixaban 5 mg tablet (Eliquis) 5 mg PO BID 03/24/25 Current Visit Medications: Current Medications Generic Name Dose Route Start Last Admin Trade Name Freq PRN Reason Stop Dose Admin Ringer's Solution 1,000 mls @ 80 mls/hr 04/17/25 06:00 IV 04/17/25 23:59 INFUSION ANGELIQUE Sodium Chloride 0 ml 04/17/25 06:00 Normal Saline Flush 10 Ml Syr IV 04/17/25 23:59 PRN PRN Sodium Chloride 0 ml 04/17/25 06:00 Normal Saline 10 Ml Vial IJ 04/17/25 23:59 DIRECTED PRN Sterile Water 0 ml 04/17/25 06:00 Water,Injection,Sterile 10 Ml Vial IJ 04/17/25 23:59 DIRECTED PRN PFSH Active Problems Active Problems: Problem Status Onset Code Hard of hearing Acute H91.90 Anticoagulated on Eliquis Acute Z79.01 Duodenal ulcer due to nonsteroidal anti-inflammatory drug (NSAID) Acute K26.9, T39.395A Gastric ulcer due to nonsteroidal anti-inflammatory drug (NSAID) Acute K25.9, T39.395A Elevated CA-125 Acute R97.1 NSAID long-term use Acute Z79.1 Hypotension Acute I95.9 GI bleeding Chronic K92.2 Weight loss, non-intentional Acute R63.4 COPD (chronic obstructive pulmonary disease) Chronic J44.9 Tobacco abuse Acute Z72.0 Anemia Chronic D64.9 Elevated BUN Acute R79.9 Hematuria Acute R31.9 Respiratory failure Acute J96.90 Medical History Medical History (Updated 04/11/25 @ 09:43 by Claudette Ramirez RN) Pneumonia Surgical History Surgical History Status following gastric bypass for weight loss EGD 2024 CONFIRMS SHE DOES NOT HAVE A GASTRIC BYPASS Tobacco Smoking/Tobacco Use Status: Current every day Tobacco Type: cigarettes Smoking cigarettes per day: 20 Passive smoking exposure: No Alcohol Alcohol Intake: former Substance Use Substance use: Daily Substance use type: marijuana Anesthesia Assessment and Plan Anesthesia History Personal History: PONV Family History: No Family History of Anesthesia Complications Exercise Tolerance Exercise Tolerance: Metabolic Equivalents>4 Cardiac & Pulmonary Exam Cardiac Exam: Normal S1/S2 Heart Sounds Pulmonary Exam: Clear Bilateral Breath Sounds Implantable Cardiac Device Does patient have a Pacemaker or an ICD?: No Airway Exam Known Difficult Airway: No Mallampati Class: 2 Mouth Opening: Normal (> 3cm) Thyromental Distance: Greater than 3 cm Neck Range of Motion: Full ROM Neck Circumference: Normal Teeth Condition: Generalized Poor Dentition ASA Classification ASA Score: ASA 2 Emergency Case?: No NPO Status NPO Status: NPO Clears >2 hours, Solids >8 hours Anesthesia Plan Resuscitation Status: Full Code Anesthesia Technique: General Anesthesia Airway Planned: Natural Airway Monitors Used: Standard Monitors Preoperative Comments:: 74 yo for EGD. Sig PMHx: HTN (no meds), COPD (denies breathing issues. no meds), GERD (pantoprazole), DVT (eliquis). Smoker tobacco/cannabis. ECHO: LVEF 61%, no sig valve issues. Previous Anes: - EGD/colo, prop, phenyl, natural airway, no issues.
[2025-04-17 08:40] VITALS: BP 145/72; PULSE 108; RESP 18; TEMP 35.9; O2SAT 99
[2025-04-17 08:44] VITALS: BMI 21.7
[2025-04-17] MEDS: Lactated Ringers 1,000 ML 80 ML IV (09:12)
[2025-04-17 10:02] VITALS: BP 103/62; PULSE 107; RESP 18; TEMP 36.7; O2SAT 99
--- NOTE | 2025-04-17 10:09 | W.PM.DSUDISC ---
Date of service: 04/17/25 Discharge Plan Disposition Patient Disposition: Home Condition: Stable Discharge Details Attending Provider: Uma Toledo Primary Care Provider: Ran Champion Recommendations for Follow Up Recommended tests to be ordered by follow up provider: None Home Meds and New Rx's Prescriptions: New pantoprazole 40 mg tablet,delayed release (DR/EC) 40 mg PO DAILY Qty: 30 2RF Continued Eliquis 5 mg tablet 5 mg PO BID hydrocodone-acetaminophen 10-325 mg tablet 1 tab PO Q6H PRN Patient Comments: TAKE 1 TABLET BY MOUTH EVERY 4-6 HOURS FOR SEVERE PAIN, DO NOT EXCEED 5 TABLETS/DAY. MINIMIZE USE multivitamin [Daily Multi-Vitamin] Tablet 1 tab PO DAILY cyanocobalamin (vitamin B-12) 1,000 mcg capsule 1,000 mcg PO DAILY calcium carbonate [Calcium 500] 500 mg calcium (1,250 mg) tablet,chewable 500 mg PO DAILY cholecalciferol (vitamin D3) 25 mcg (1,000 unit) tablet 1,000 unit PO DAILY potassium chloride 20 mEq packet 20 meq PO DAILY Qty: 3 0RF furosemide [Lasix] 20 mg tablet 20 mg PO DAILY Qty: 3 0RF Discontinued pantoprazole 40 mg tablet,delayed release (DR/EC) 40 mg PO DAILY Discharge Instructions Additional Instructions: Your EGD shows your ulcer in stomach has healed. Smaller erosions and duodenal irritation healing, all improved. Some persistent irritation so I want you to continue pantoprazole 40mg daily for 3 more months. After that you and your PCP may decide to stop it or continue it. I am okay if you stop it after three more months. You may resume eliquis today. See me as needed. No need for office appointment unless you are not feeling and doing well from your stomach ulcer standpoint. Stand Alone Forms: Portal Information Discharge Orders Discharge Orders: Discharge Order (Routine); Ordered 04/17/25 Ordered By: Uma Toledo DS: Diagnosis Discharge Diagnosis (1) History of gastric ulcer: Status: Acute
--- NOTE | 2025-04-17 10:14 | W.ANESPOSTOP ---
Postoperative Evaluation Date, Time and Location Date Performed: 04/17/25 Time Performed: 10:14 Patient Location: [facility] Unit Vital Signs Most Recent Imported Vital Signs: Most Recent Vital Signs Temp Pulse Resp BP Pulse Ox 36.7 C 107 H 18 103/62 99 04/17/25 10:02 04/17/25 10:02 04/17/25 10:02 04/17/25 10:02 04/17/25 10:02 Assessment Mental Status: Awake (Alert & Oriented to Patient Baseline) Airway and Respiratory Function: Patent airway with normal (patient baseline) respiratory exam Cardiovascular Function: Hemodynamically Stable Hydration Status: Adequately Hydrated Nausea & Vomiting: No Nausea or Vomiting Pain: Pt. Denies Any Pain Peripheral Nerve Block: Patient did not receive a nerve block
--- NOTE | 2025-04-17 10:15 | W.PM.ENDDOP ---
Date of service: 04/17/25 Time of Service: 10:15 Endoscopy Report DATE OF PROCEDURE: 04/17/25 PRE-OP DIAGNOSIS: History of gastric ulcer; reevaluation POST-OP DIAGNOSIS: same (resolving ulcers and erosions) PROCEDURE: EGD SURGEON: Uma Toledo ANESTHESIA TYPE: MAC ESTIMATED BLOOD LOSS: 0 PATHOLOGY: none sent COMPLICATIONS: None PROCEDURE DESCRIPTION: Lubricated endoscope was passed through a bite block into the second portion of the duodenum. The endoscope was withdrawn and the duodenum stomach and esophageal mucosa examined. The duodenum appeared normal overall. small areas of resolving erosions noted. The antrum appears normal. Ulcers resolved. The fundus appears normal. The cardia appears normal. The endoscope was retroflexed and there is no evidence of hiatal hernia. GE junction is at 36cm from the incisors. The distal esophagus is normal without ulceration, varices or candidiasis. The Z-line is regular and there is no evidence of Elliott's esophagus. Remainder of the esophagus appears normal Assessment and plan: Resolved gastric and duodenal ulcers. Mild inflammation residual in some of the resolving ulcer beds. Continue pantoprazole 40mg daily for 3 more months then okay to discontinue. Resume Eliquis today. See me as needed. Follow up with PCP.
[2025-04-17 10:27] VITALS: BP 117/64; PULSE 96; RESP 18; TEMP 36.7; O2SAT 98
== END 2025-04-17 10:55 | disposition home or self-care (01) ==
PROVIDERS: PCP Family Medicine; Visit Provider Surgery
PROC: 0DJ68ZZ Inspection of Stomach, Via Natural or Artificial Opening Endoscopic (ICD-10-PCS; CPT 43235; principal; 2025-04-17 09:15)
DX: K25.9 Gastric ulcer, unspecified as acute or chronic, without hemorrhage or perforation (principal); I10 Essential (primary) hypertension; J44.9 Chronic obstructive pulmonary disease, unspecified; K21.9 Gastro-esophageal reflux disease without esophagitis; Z79.01 Long term (current) use of anticoagulants
CPT/HCPCS: 43235; J2405; J2704

== ENCOUNTER → 2025-04-25 00:27 | Outpatient (CLI) | payer MEDICARE, MEDICAID, SELFPAY ==
--- NOTE | 2025-04-25 | DI.US_ITS ---
Exam(s) US UPPER EXTREMITY VENOUS LT EXAM: US UPPER EXTREMITY VENOUS LT CLINICAL HISTORY: FOLLOW UP DVT, ACUTE EMBOLISM/THROMBOSIS DEEP VEINS LT UPPER EXTREMITY TECHNIQUE: GRAYSCALE, COLOR, DOPPLER IMAGING OF THE VENOUS SYSTEM OF THE UPPER EXTREMITY-BILATERAL COMPARISON: US US UPPER EXTREMITY VENOUS LT from 12/19/2024 FINDINGS: Compared to the prior ultrasound of 12/19/2024 there has been resolution of the previously present long 25 cm intraluminal thrombus. There is some mild residual irregularity of the wall of the basilar vein which may be very minimal residual mural thrombus. IMPRESSION: Significant improvement with almost complete resolution of the previously described 25 cm intraluminal thrombus. There mild residual mural based thrombus in the Basilic vein. DATA REPOSITORY:
== END ==
LOC: DI 00:27
PROVIDERS: PCP Family Medicine; Visit Provider Family Medicine
DX: I82.622 Acute embolism and thrombosis of deep veins of left upper extremity (principal)
CPT/HCPCS: 93971